=== PATIENT | male | born 1970 | race American Indian/Alaskan Native ===

== ENCOUNTER 2024-04-01 11:52 | Inpatient (IN) | payer MEDICAID, SELFPAY ==
[2024-04-01 12:00] VITALS: BP 118/70; PULSE 84; RESP 19; TEMP 36.3; O2SAT 96
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
[2024-04-01 12:21] LABS: Basophils % (Auto) 0 % (0-2.5); Eosinophils % (Auto) 0 % (0-10); Hematocrit 29.9 % (41.0-53.0); Hemoglobin 9.9 g/dL (13.5-16.0); Immature Granulocytes % (Auto) 1 % (0-0); Immature Granulocytes Auto 0.15 Thou/mm3 (0.00-0.00); Lymphocytes # (Auto) 1.6 Thou/mm3 (1.0-4.8); Lymphocytes % (Auto) 7 % (10-50); Mean Corpuscular HGB Conc 33.1 g/dl (31.0-37.0); Mean Corpuscular Hemoglobin 27.2 pg (25.0-35.0); Mean Corpuscular Volume 82 fL (80-100); Monocytes # (Auto) 1.5 Thou/mm3 (0.0-0.8); Monocytes % (Auto) 7 % (0-12); Neutrophils # (Auto) 19.4 Thou/mm3 (1.8-7.7); Neutrophils % (Auto) 86 % (37-80); Nucleated Red Blood Cell % 0 /100 WBC (0); Platelet Count 477 Thou/mm3 (140-440); RDW Standard Deviation 38.2 fL (35.1-43.9); Red Blood Count 3.64 Miln/mm3 (4.50-5.90); White Blood Count 22.7 Thou/mm3 (3.8-10.6)
[2024-04-01 12:39] LABS: Alanine Aminotransferase 13 U/L (10-49); Albumin, Serum 3.2 gm/dL (3.5-5.0); Alkaline Phosphatase 192 U/L (46-116); Anion Gap 6 (7-16); Aspartate Amino Transferase 21 U/L (0-34); BUN/Creatinine Ratio 15 Ratio (12-20); Bilirubin,Total 0.8 mg/dL (0.3-1.2); Blood Urea Nitrogen 9 mg/dL (9-23); Calcium 9.1 mg/dL (8.3-10.6); Calcium (Corrected) 9.7 mg/dL (8.5-10.1); Carbon Dioxide 32.9 mMol/L (20.0-31.0); Chloride 95 mMol/L (98-107); Creatinine (Component) 0.6 mg/dL (0.6-1.3); Globulin 3.2 gm/dL (2.3-3.5); Glucose 87 mg/dL (74-106); Osmolality,Calculated 265 (275-295); Sodium 134 mMol/L (136-145); Total Protein 6.4 gm/dL (5.7-8.2); eGFR > 60 See Note
[2024-04-01 13:38] VITALS: PULSE 80; RESP 16; O2SAT 98; BMI 27.3
--- NOTE | 2024-04-01 13:54 | PC.NURSE ---
BIBA for seizure. When EMS arrived in scene pt was post ictal, then began to have a tonic colonic seizure. EMS gave 4mg IN versed, seizure stopped. FSBG read LO EMS gave 25g D50. Repeat BG 174 per EMS. VSS otherwise. GCS 15.
--- NOTE | 2024-04-01 14:46 | EKG_ITS ---
[facility] Test Date: 2024-04-01 Pat Name: OMAR PEREZ Department: Room: - Gender: Male Vocal Performer: : 1970 Requested By: Quan Howard Order Number: [id number] Reading MD: Quan Howard Measurements Intervals [place] Rate: 80 P: 45 MS: 139 QRS: -29 QRSD: 113 T: 33 QT: 398 QTc: 461 Interpretive Statements SINUS RHYTHM BORDERLINE LEFT AXIS DEVIATION [QRS AXIS < -20] MODERATE INTRAVENTRICULAR CONDUCTION DELAY [110+ ms QRS DURATION] Compared to ECG 04/26/2022 13:33:23 Intraventricular conduction delay now present Sinus tachycardia no longer present Myocardial infarct finding no longer present /store/S0/[id number]/ecg/[id number].pdf
[2024-04-01 15:34] LABS: INR 1.2 (0.9-1.3); Partial Thromboplastin Time 34.2 Seconds (22.0-36.0); Prothrombin Time 12.6 Seconds (9.0-12.2)
[2024-04-01 15:46] LABS: LDH (Lactate Dehydrogenase) 250 U/L (120-246); Magnesium 1.4 mg/dL (1.6-2.6)
--- NOTE | 2024-04-01 15:46 | ESCONSULT_ITS ---
HPI Data of Consult Primary Care Provider: Easton Hwang PA-C Consult Narrative Reason for consult: Significant drop in H/H FOBT positive History of present illness: 53 years old male evaluated at the request of the physician clinical medical assistant in the emergency room for occult GI bleeding Hemoccult positive stool with and a low hemoglobin hematocrit of 9.9 and 29.9 Patient presented with hypoglycemia and altered mental status requiring infusion of D50 after that he became quite oriented I was consulted for occult GI bleeding and low hemoglobin hematocrit cc:: cc: Review of Systems Review of Systems Systems Reviewed: All systems reviewed, normal except as documented Past Medical History Surgical History OTHER SURGICAL HX: IDDM History of DKA in the past Meds Home Medications and Allergies Home Medications ?Medication ?Instructions ?Recorded ?Confirmed ?Type insulin glargine 100 unit/mL 40 unit subcut QDAY 04/01/24 04/02/24 History subcutaneous solution (Lantus U-100 Insulin) insulin lispro 100 unit/mL 10 unit subcut TID 04/01/24 04/02/24 History subcutaneous pen Allergies Allergy/AdvReac Type Severity Reaction Status Date / Time No Known Allergies Allergy Verified 04/02/24 21:46 Exam Vital Signs Temp Pulse Resp BP Pulse Ox O2 Del Method 97.4 F 84 19 118/70 96 Room Air 04/01/24 12:00 04/01/24 12:00 04/01/24 12:00 04/01/24 12:00 04/01/24 12:00 04/01/24 12:00 Constitutional Comments: Chronically ill-appearing Routine Respiratory Exam Comments: Normal to auscultation Routine Abdominal Exam Comments: Soft nontender Results Labs 04/02/24 04:46 04/02/24 04:46 Labs: Short CBC 04/01/24 Range/Units 12:12 WBC 22.7 H (3.8-10.6) Thou/mm3 Hgb 9.9 L (13.5-16.0) g/dL Hct 29.9 L (41.0-53.0) % Plt Count 477 H D (140-440) Thou/mm3 BMP 04/01/24 12:12 Sodium 134 L Potassium 3.0 L Chloride 95 L Carbon Dioxide 32.9 H BUN 9 Creatinine 0.6 Glucose 87 Calcium 9.1 Liver Function 04/01/24 Range/Units 12:12 Total Bilirubin 0.8 (0.3-1.2) mg/dL AST 21 (0-34) U/L ALT 13 (10-49) U/L Alkaline Phosphatase 192 H (46-116) U/L Albumin 3.2 L (3.5-5.0) gm/dL Assessment and Plan Additional Assessment & Plan Additional Plan: # Occult GI bleeding # Anemia blood loss/acute posthemorrhagic anemia Plan N.p.o. at midnight tonight Fiberoptic esophagogastroduodenoscopy with possible biopsy possible therapeutic intervention under intravenous moderate sedation Continue IV Protonix In case the upper endoscopy is negative we will consider doing the fibrotic colonoscopy prior to discharge Other medical problems include # Hyperglycemia in the noncompliant patient with IDDM with previous history of DKA using insulin indiscriminately thank you very much for the opportunity to participate in the care of this patient
[2024-04-01] MEDS: PANTOPRAZOLE INJ 40 MG VIAL IVP (15:47)
[2024-04-01] MEDS: PANTOPRAZOLE/NS 80MG IV PREMIX 80 MG/100 ML BAG 10 MG IV ×2 (15:47→22:58)
[2024-04-01 15:53] LABS: B-Type Natriuretic Peptide 78 pg/mL (0-100)
[2024-04-01 16:49] VITALS: BP 106/69; PULSE 91; RESP 18; TEMP 36.9; O2SAT 94
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
[2024-04-01 18:28] VITALS: BP 113/73; PULSE 92; RESP 15; TEMP 36.9; O2SAT 95
[2024-04-01] MEDS: POTASSIUM CHLORIDE 20 mEq TABCR 40 MEQ PO (18:57)
[2024-04-01 19:51] VITALS: BMI 27.6
[2024-04-01 20:00] VITALS: BP 110/70; PULSE 88; RESP 16; TEMP 36.6; O2SAT 100
[2024-04-01] MEDS: Magnesium Sulfate 2 GM Ivpb 2 GM/50 ML BAG IV (21:12)
[2024-04-01] MEDS: MELATONIN 3 MG TABLET PO (21:54)
[2024-04-02] VITALS (13 sets, daily range): BP systolic 97–172; BP diastolic 67–99; PULSE 72–108; RESP 13–20; TEMP 36.3–37; O2SAT 94–100
[2024-04-02] MEDS: ACETAMINOPHEN 325 MG TABLET 650 MG PO (02:23)
[2024-04-02] MEDS: GABAPENTIN 100 MG CAPSULE PO (05:01)
[2024-04-02 05:24] LABS: Basophils % (Auto) 0 % (0-2.5); Eosinophils % (Auto) 0 % (0-10); Hematocrit 24.8 % (41.0-53.0); Immature Granulocytes % (Auto) 0 % (0-0); Immature Granulocytes Auto 0.06 Thou/mm3 (0.00-0.00); Lymphocytes # (Auto) 2.3 Thou/mm3 (1.0-4.8); Lymphocytes % (Auto) 17 % (10-50); Mean Corpuscular HGB Conc 33.5 g/dl (31.0-37.0); Mean Corpuscular Volume 81 fL (80-100); Monocytes # (Auto) 1.5 Thou/mm3 (0.0-0.8); Monocytes % (Auto) 11 % (0-12); Neutrophils # (Auto) 9.8 Thou/mm3 (1.8-7.7); Neutrophils % (Auto) 72 % (37-80); Nucleated Red Blood Cell % 0 /100 WBC (0); Platelet Count 403 Thou/mm3 (140-440); RDW Standard Deviation 36.7 fL (35.1-43.9); Red Blood Count 3.07 Miln/mm3 (4.50-5.90); White Blood Count 13.6 Thou/mm3 (3.8-10.6)
[2024-04-02 05:47] LABS: Hemoglobin 8.3 g/dL (13.5-16.0)
[2024-04-02 05:49] LABS: Alanine Aminotransferase 14 U/L (10-49); Albumin, Serum 2.8 gm/dL (3.5-5.0); Alkaline Phosphatase 173 U/L (46-116); Anion Gap 2 (7-16); Aspartate Amino Transferase 14 U/L (0-34); BUN/Creatinine Ratio 13 Ratio (12-20); Bilirubin,Total 0.4 mg/dL (0.3-1.2); Blood Urea Nitrogen 8 mg/dL (9-23); Calcium 8.6 mg/dL (8.3-10.6); Calcium (Corrected) 9.6 mg/dL (8.5-10.1); Carbon Dioxide 33.6 mMol/L (20.0-31.0); Chloride 96 mMol/L (98-107); Creatinine (Component) 0.6 mg/dL (0.6-1.3); Estimated Creatinine Clearance 140.7 mL/min (>60); Globulin 2.8 gm/dL (2.3-3.5); Glucose 255 mg/dL (74-106); Magnesium 1.7 mg/dL (1.6-2.6); Osmolality,Calculated 271 (275-295); Phosphorous 3.5 mg/dL (2.4-5.1); Potassium 3.9 mMol/L (3.4-5.1); Sodium 132 mMol/L (136-145); Total Protein 5.6 gm/dL (5.7-8.2); eGFR > 60 See Note
[2024-04-02] MEDS: INSULIN LISPRO (AdmeLOG) 1 UNIT/0.01 ML UNIT SC ×2 (07:57→11:38)
--- NOTE | 2024-04-02 10:23 | PC.SS ---
Rounding: Pending Dr. Sol consult and reccs
[2024-04-02] MEDS: PANTOPRAZOLE/NS 80MG IV PREMIX 80 MG/100 ML BAG 10 MG IV ×2 (10:37→20:05)
--- NOTE | 2024-04-02 10:53 | PC.SS ---
Javed Lutz is a 53-year-old male admitted to Med-Surg for Hypoglycemia. SS conducted bedside contact with the patient to complete initial assessment and to discuss discharge planning. Patient confirmed demographic information. Patient identifies his spouse Stacie Lutz [phone] as his surrogate decision maker. Patient resides at home with his spouse. Pt states he is able to complete all ADL?s independently, no need for any source of DME. Pts PCP is Dr. Easton Hwang and his pharmacy of choice is [facility] on [address]. DC options discussed and pt wishes to retun home with [facility] as they were following him from recent admission. Pts spouse Stacie will provide transportation upon DC. No further intervention required at this time, social media developer would be available to address any further concerns. DC Plan: Home w/ HH ([facility] Established) Contact: Stacie Lutz [phone] PCP: Jaiden
[2024-04-02 11:57] LABS: Collection Type, Urine Clean Catch
[2024-04-02 12:09] LABS: Bacteria,Urine Rare; Bilirubin,Urine Negative (Negative); Blood,Urine Negative (Negative); Color,Urine Lt-Yellow (Lt Yel-Yel); Glucose, Urine 4+ (Negative); Ketones,Urine Negative (Negative); Leukocyte Esterase,Urine Positive (Negative); Nitrite,Urine Negative (Negative); PH,Urine 7.5 (5.0-7.0); Protein,Urine Negative (Neg - Trace); RBC,Urine 4 /hpf (0-3); Specific Gravity,Urine 1.013 (1.001-1.035); Squamous Epithelial Cell,Urine 1 /hpf (0-5); WBC,Urine 51 /hpf (0-5)
--- NOTE | 2024-04-02 12:10 | ESPR_ITS ---
<Statement entered by Mechelle Mathur DO - 04/02/24 17:37> Senior attestation: Patient was examined and case was reviewed with team including attending physician. Note reviewed, I agree with most of its contents and agree with the patient's care. Glargine 20 units qday added (half of patient's home glargine dose), will order urine toxicology, pending GI recommendations. Mechelle Mathur DO PGY-3 <Statement entered by Miah Montalvo MD - 04/02/24 14:58> Senior Resident Attestation: I supervised/discussed management plan with internal communications specialist physician Dr. Freitas, and was involved in the care of this patient. I personally saw and examined the patient and discussed the assessment and plan with the entire medicine team, including my attending. I agree with the assessment and plan as documented. Patient's morning glucose was 255, his glargine was resumed at 50% of home dose and gabapentin was resumed. He is scheduled for colonoscopy today with Dr. Sol, hemoglobin dropped to 8.3 today. Will continue current management and await for colonoscopy. Patient's care was discussed with attending physician, Dr. Buck. Miah Montalvo MD PGY-2. Documentation for date of: 04/02/24 Subjective Subjective Interval history: 04/02: No overnight events, patient is seen and examined at bedside. Patient states that he has burning type of pain on the soles of his feet bilaterally. Patient also states that he has been sweating a lot. Patient denies chest pain shortness of breath nausea vomiting or abdominal pain. Patient has no other complaints. Exam Vital Signs Temp Pulse Resp BP Pulse Ox O2 Del Method 97.4 F 79 16 115/71 95 Room Air 04/02/24 08:00 04/02/24 08:00 04/02/24 08:00 04/02/24 08:00 04/02/24 08:00 04/02/24 08:00 Narrative Exam GENERAL: A&Ox3 . 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 mucous membranes moist. Eyes open, symmetrical, & clear HEART: Normal Heart Sounds LUNGS: Clear to auscultation with no wheezing or crackles. ABDOMEN: soft, non-distended, non-tender, bowel sounds heard, no guarding or rebound tenderness SKIN: No Rash or ecchymoses EXTREMITIES: 1+ pitting edema, tenderness, able to move all 4 extremities, pedal pulses palpated Objective Labs 04/02/24 04:46 04/02/24 04:46 Labs: Laboratory Results - last 24 hr 04/01/24 04/02/24 12:12 04:46 WBC 22.7 H 13.6 H D RBC 3.64 L 3.07 L Hgb 9.9 L 8.3 L Hct 29.9 L 24.8 L MCV 82 81 MCH 27.2 27.0 MCHC 33.1 33.5 RDW Std Deviation 38.2 36.7 Plt Count 477 H D 403 D Neut % (Auto) 86 H 72 Lymph % (Auto) 7 L 17 [place] % (Auto) 7 11 Eos % (Auto) 0 0 Baso % (Auto) 0 0 Neut # (Auto) 19.4 H 9.8 H Lymph # (Auto) 1.6 2.3 [place] # (Auto) 1.5 H 1.5 H Eos # (Auto) 0.0 0.0 Baso # (Auto) 0.0 0.0 Immature Gran # (Auto) 0.15 H 0.06 H Absolute Nucleated RBC 0.00 0.00 Immature Gran % 1 H 0 Nucleated RBC % 0 0 PT 12.6 H INR 1.2 APTT 34.2 Sodium 134 L 132 L Potassium 3.0 L 3.9 D Chloride 95 L 96 L Carbon Dioxide 32.9 H 33.6 H Anion Gap 6 L 2 L BUN 9 8 L Creatinine 0.6 0.6 Estim Creat Clear Calc Not Performed. 140.7 eGFR > 60 > 60 BUN/Creatinine Ratio 15 13 Glucose 87 255 H D Calculated Osmolality 265 L 271 L Calcium 9.1 8.6 Corrected Calcium 9.7 9.6 Phosphorus 3.5 Magnesium 1.4 L 1.7 Total Bilirubin 0.8 0.4 AST 21 14 ALT 13 14 Alkaline Phosphatase 192 H 173 H Lactate Dehydrogenase 250 H B-Natriuretic Peptide 78 Total Protein 6.4 5.6 L Albumin 3.2 L 2.8 L Globulin 3.2 2.8 Albumin/Globulin Ratio 1.0 L 1.0 L Quality Measures Quality Measures none Assessment & Plan Assessment Current Active Medications: Generic Name Dose Route Start Last Admin Trade Name Freq PRN Reason Stop Dose Admin Acetaminophen 650 mg 04/01/24 16:39 04/02/24 02:23 Acetaminophen 325 Mg Tablet PO 05/01/24 16:38 650 mg Q6H PRN Administration Fever >101.5 Dextrose 25 ml 04/01/24 18:09 Dextrose 50%-Water Inj 50 Ml Syringe IV 05/01/24 18:08 Q15MIN PRN BG 50-70 responsive npo pt Dextrose 50 ml 04/01/24 18:09 Dextrose 50%-Water Inj 50 Ml Syringe IV 05/01/24 18:08 Q15MIN PRN BG <50 OR BG <70 & pt unresponsive Glucagon 1 mg 04/01/24 18:09 Glucagon Inj 1 Mg Vial IM Q15MIN PRN BG <70, and no IV access Pantoprazole Sodium 80 mg in 100 mls @ 10 mls/hr 04/01/24 14:46 04/02/24 10:37 Protonix/Ns 80mg Iv Premix IV 04/04/24 12:45 10 mls/hr Q10H COLBY Administration Insulin Human Lispro 0 unit 04/02/24 07:30 04/02/24 11:38 Insulin Lispro (Admelog) 1 Unit/0.01 Ml Unit SC 05/02/24 07:29 3 unit AC COLBY Administration Protocol Melatonin 3 mg 04/01/24 21:45 04/01/24 21:54 Melatonin 3 Mg Tablet PO 05/02/24 20:59 3 mg HS PRN Administration INSOMNIA Ondansetron HCl 4 mg 04/01/24 16:44 Ondansetron Inj 2 Mg/Ml Inj 2 Ml IV 05/01/24 16:43 Q6H PRN NAUSEA OR VOMITING Protocol Sennosides 2 tab 04/01/24 16:44 Senna Tablet PO 05/01/24 16:43 BID PRN CONSTIPATION Protocol Plan Mr. Lutz is a 53-year-old male with past medical history significant for type 2 diabetes on insulin, hypertension and recent history of hospitalization for DKA presented to the ED after a witnessed seizure by his mother. Patient states that he took insulin and approximately 15 minutes later he felt really sweaty and had a seizure but he cannot recall any other events. Patient endorses that it is possible that he might have used his 40 units of fast acting instead of 10 units which is his normal dose. #hypoglycemia in the setting of #Diabetes Mellitus #Seizure like activity -unlikely #hypokalemia- resolved # Peripheral neuropathy likely from uncontrolled diabetes -When EMS arrived patient's fingerstick glucose was undetectable low, on arrival fingerstick glucose 114 -Patient states that he may have accidentally taken 40 units of fast acting insulin but is unsure -Patient recalls feeling sweaty prior to seizure-like activity -D50 given by EMS en route to the hospital Plan: -40 mEq potassium given on 04/01 -Monitor daily CMP -Insulin sliding scale ordered -20 units of glargine daily started -Monitor daily fingerstick glucose -Patient was started on gabapentin 300mg daily #Substance abuse -Patient's urine tox is positive for fentanyl, benzos, and cocaine -Speeder Worker on 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 pt's baseline is approximately 13 -Significant drop in H/H FOBT positive -Patient denies any history of PUD, NSAID use, denies any episodes of melena or hematochezia Plan: -GI consulted-appreciate recommendations -Protonix drip started -Trend H&H -IV fluids not given, due to patient's pitting edema bilaterally in lower extremities -Pain and nausea management as needed -Avoid NSAIDs/ASA/chemical anticoagulation -Monitor daily CBC # Lower extremity edema -Patient has 1+ pitting edema bilaterally on lower extremities -Denies shortness of breath or chest pain -Will will continue to monitor for improvement with elevation -Will consider echo and fluid restriction if no improvement noted tomorrow #reactive leukocytosis -in the setting of dehydration and hypoglycemia -No source of infection identified Plan: -Monitor daily CBC #Hypomagnesemia-resolved -On arrival magnesium 1.4 Plan: -2mg magnesium given -Monitor am labs # History of primary Hypertension -Patient has a history of high blood pressure previously used to take lisinopril and for some time he stopped taking the medication recently his primary care physician restarted lisinopril -Will hold home blood pressure medications since patient's blood pressure is soft Disposition: Medsurg -pending EGD and colonoscopy with Dr. Sol DVT Prophylaxis: SCD QSHIFT GI Prophylaxis: Pantoprozol-40 IV Diet: clear liquid now, NPO after midnight Code status: Full Assessment and plan discussed with my senior resident Dr. Mathur & attending physician Dr. iCelo Freitas (PGY-1)- Internal medicine resident Attending Provider Attestation/Addendum I reviewed labs, imaging, EKG, home medications and prior available records. Face to face evaluation was performed by me. I have personally examined the patient and discussed assessment and plan with the IM team. I reviewed the resident note and agree with the plan with exceptions as below. 53-year-old male with history of insulin-dependent diabetes mellitus who presented with a chief complaint of generalized body shaking and diaphoresis for 10 to 15 minutes. He was found to have hypoglycemia and possible GI bleed. Hypoglycemia: Resolved. Patient's presenting symptoms are likely due to hypoglycemia rather than paul seizure activities as the patient remembers part of the episode and he is completely alert oriented after correction of his hypoglycemia with dextrose. Currently his fingerstick is stable. Likely in the setting of using high-dose short acting insulin which is likely by mistake. Resume insulin at a lower dose. Continue to monitor fingersticks closely. Instructed the patient to make sure that he identify short acting versus long- acting insulin prior to injection. Acute anemia: Hemoglobin significantly dropped and his FOBT is positive. Concern for GI bleed. Consulted GI: Recommended PPI twice daily IV and plan for EGD/colonoscopy. Monitor H&H. GI bleed: As above. Bilateral lower extremity swelling: Can be due to venous insufficiency versus volume overload. Ordered BMP that was normal. Could be due to venous insufficiency. Elevation of legs. SCDs. Leukocytosis: Likely reactive in the setting of GI bleed and hypoglycemia. Less likely due to infection. Management as above. Trend WBC: Downtrending. Uncontrolled diabetes mellitus with hyperglycemia: On insulin. Resume insulin at a lower dose. Ensure proper use of insulin at the correct doses.
[2024-04-02 12:23] LABS: Amphetamine/Methamp Scrn,U Negative (Negative); Barbiturate Screen,Urine Negative (Negative); Benzodiazepines Screen,Urine Positive (Negative); Benzoylecgonine Screen, Ur Positive (Negative); Fentanyl Screen,Urine Positive (Negative); Opiate Screen,Urine Negative (Negative); THC Screen,Urine Negative (Negative)
[2024-04-02 12:33] LABS: Clarity,Urine Hazy (Clear/Hazy)
[2024-04-02] MEDS: GABAPENTIN 300 MG CAPSULE PO (14:40)
[2024-04-02] MEDS: INSULIN GLARGINE (Lantus) 5 UNIT/0.05 ML (PER 5 UNITS) 20 UNIT SC (15:09)
--- NOTE | 2024-04-02 16:32 | ESPR_ITS ---
Addendum Progress Note Addendum Date of report being addended: 04/03/24 Narrative: I reviewed labs, imaging, EKG, home medications and prior available records. Face to face evaluation was performed by me. I have personally examined the patient and discussed assessment and plan with the IM team. I reviewed the resident note and agree with the plan with exceptions as below. 53-year-old male with history of insulin-dependent diabetes mellitus who presented with a chief complaint of generalized body shaking and diaphoresis for 10 to 15 minutes. He was found to have hypoglycemia and possible GI bleed. Hypoglycemia: Resolved. Patient's presenting symptoms are likely due to hypogl ycemia rather than paul seizure activities as the patient remembers part of the episode and he is completely alert oriented after correction of his hypoglycemia with dextrose. Currently his fingerstick is stable. Likely in the setting of using high-dose short acting insulin which is likely by mistake. Resume insulin at a lower dose. Continue to monitor fingersticks closely. Instructed the pa tient to make sure that he identify short acting versus long-acting insulin prior to injection. Ordered urine toxicology that came back positive for cocaine and fentanyl. Possibly contributing to the patient's initial shaking symptoms. Counseled the patient regarding the importance of avoiding illicit drugs. Acute anemia: Hemoglobin significantly dropped and his FOBT is positive. Concern for GI bleed. Consulted GI: Recommended PPI twice daily IV and plan for EGD/colonoscopy. EGD was done and showed gastritis without source of bleeding. Plan to proceed to colonoscopy. Started clear liquid diet. Monitor H&H. GI bleed: As above. Bilateral lower extremity swelling: Can be due to venous insufficiency versus volume overload. Ordered BMP that was normal. Could be due to venous insufficiency. Elevation of legs. SCDs. Leukocytosis: Likely reactive in the setting of GI bleed and hypoglycemia. Less likely due to infection. Management as above. Trend WBC: Downtrending. Uncontrolled diabetes mellitus with hyperglycemia: On insulin. Resume insulin at a lower dose. Ensure proper use of insulin at the correct doses.
--- NOTE | 2024-04-02 21:50 | SUR.PHASEI ---
[id number] patient arrived to recovery, report from Gloria DEMARCO
--- NOTE | 2024-04-02 22:21 | SUR.PHASEI ---
2216 Report given to Dong DEMARCO, patient meets discharge criteria from recovery, awake and alert, sitting up in [facility], breathing unlabored, vital signs stable, denies pain, and patient ate two jello's and drinking water, denies nausea 2221 Patient transported via [facility]ney to room 357 without incident, patient voided in the restroom, patient resting comfortably in his bed with call light in reach when this appeals writer left patients room
[2024-04-02] MEDS: NA SU/NAHCO3/KC/PEG (Golytely) 4,000 ML BTL 4000 ML PO (23:17)
[2024-04-03] VITALS (19 sets, daily range): BP systolic 98–137; BP diastolic 64–93; PULSE 78–99; RESP 9–20; TEMP 36.4–37.4; O2SAT 94–100
[2024-04-03 05:52] LABS: Basophils % (Auto) 0 % (0-2.5); Eosinophils % (Auto) 0 % (0-10); Hematocrit 27.9 % (41.0-53.0); Hemoglobin 9.2 g/dL (13.5-16.0); Immature Granulocytes % (Auto) 1 % (0-0); Immature Granulocytes Auto 0.06 Thou/mm3 (0.00-0.00); Lymphocytes # (Auto) 1.5 Thou/mm3 (1.0-4.8); Lymphocytes % (Auto) 12 % (10-50); Mean Corpuscular Hemoglobin 26.7 pg (25.0-35.0); Mean Corpuscular Volume 81 fL (80-100); Monocytes # (Auto) 1.1 Thou/mm3 (0.0-0.8); Monocytes % (Auto) 9 % (0-12); Neutrophils # (Auto) 9.8 Thou/mm3 (1.8-7.7); Neutrophils % (Auto) 79 % (37-80); Nucleated Red Blood Cell % 0 /100 WBC (0); Platelet Count 462 Thou/mm3 (140-440); RDW Standard Deviation 37.5 fL (35.1-43.9); Red Blood Count 3.44 Miln/mm3 (4.50-5.90); White Blood Count 12.5 Thou/mm3 (3.8-10.6)
[2024-04-03 06:37] LABS: Alanine Aminotransferase 13 U/L (10-49); Albumin, Serum 3.2 gm/dL (3.5-5.0); Alkaline Phosphatase 175 U/L (46-116); Anion Gap 5 (7-16); Aspartate Amino Transferase 12 U/L (0-34); BUN/Creatinine Ratio 10 Ratio (12-20); Bilirubin,Total 0.6 mg/dL (0.3-1.2); Blood Urea Nitrogen 6 mg/dL (9-23); Calcium (Corrected) 9.6 mg/dL (8.5-10.1); Carbon Dioxide 30.5 mMol/L (20.0-31.0); Chloride 97 mMol/L (98-107); Creatinine (Component) 0.6 mg/dL (0.6-1.3); Estimated Creatinine Clearance 140.7 mL/min (>60); Globulin 3.2 gm/dL (2.3-3.5); Glucose 107 mg/dL (74-106); Osmolality,Calculated 262 (275-295); Potassium 3.8 mMol/L (3.4-5.1); Sodium 132 mMol/L (136-145); Total Protein 6.4 gm/dL (5.7-8.2); eGFR > 60 See Note
[2024-04-03] MEDS: GABAPENTIN 300 MG CAPSULE PO (08:11)
[2024-04-03] MEDS: INSULIN GLARGINE (Lantus) 5 UNIT/0.05 ML (PER 5 UNITS) 20 UNIT SC (08:12)
[2024-04-03] MEDS: INSULIN LISPRO (AdmeLOG) 1 UNIT/0.01 ML UNIT SC ×3 (08:13→17:12)
--- NOTE | 2024-04-03 09:05 | PC.CM ---
Patient is open to [facility] health. If patient goes home doctor will need to place new home health orders.
[2024-04-03] MEDS: PANTOPRAZOLE/NS 80MG IV PREMIX 80 MG/100 ML BAG 10 MG IV ×2 (09:56→22:19)
--- NOTE | 2024-04-03 10:30 | PC.SS ---
Rounding: Pending Colonoscopy
--- NOTE | 2024-04-03 18:11 | ESPR_ITS ---
<Statement entered by Mechelle Mathur DO - 04/03/24 20:22> Senior attestation: Patient was examined and case was reviewed with team including attending physician. Note reviewed, I agree with most of its contents and agree with the patient's care. Currently completing golytely preparation for colonoscopy. Mechelle Mathur DO PGY-3 <Statement entered by Miah Mnotalvo MD - 04/03/24 18:25> Senior Resident Attestation: I supervised/discussed management plan with unpaid intern physician Dr. Freitas, and was involved in the care of this patient. I personally saw and examined the patient and discussed the assessment and plan with the entire medicine team, including my attending. I agree with the assessment and plan as documented. Patient is pending for colonoscopy today, will follow up with GI after. Patient's care was discussed with attending physician, Dr. Buck. Miah Montalvo MD PGY-2. Documentation for date of: 04/03/24 Subjective Subjective Interval history: 04/02: No overnight events, patient is seen and examined at bedside. Patient states that he has burning type of pain on the soles of his feet bilaterally. Patient also states that he has been sweating a lot. Patient denies chest pain shortness of breath nausea vomiting or abdominal pain. Patient has no other complaints. 04/03: No overnight events, patient is seen and examined at bedside. Patient is lying comfortable saturating on room air. Patient denies any shortness of breath, dizziness, chest pain or abdominal pain. Patient is counseled on importance of abstinence from drug use, patient denies any recent drug use. Patient has no complaints. Exam Vital Signs Temp Pulse Resp BP Pulse Ox O2 Del Method O2 Flow Rate 97.7 F 78 16 128/73 99 Room Air 3 04/03/24 16:00 04/03/24 16:00 04/03/24 16:00 04/03/24 16:00 04/03/24 16:00 04/03/24 16:00 04/02/24 21:45 Narrative Exam GENERAL: A&Ox3 . 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 mucous membranes moist. Eyes open, symmetrical, & clear HEART: Normal Heart Sounds LUNGS: Clear to auscultation with no wheezing or crackles. ABDOMEN: soft, non-distended, non-tender, bowel sounds heard, no guarding or rebound tenderness SKIN: No Rash or ecchymoses EXTREMITIES: 1+ pitting edema, tenderness, able to move all 4 extremities, pedal pulses palpated Objective Labs 04/04/24 05:25 04/04/24 05:25 Labs: Laboratory Results - last 24 hr 04/03/24 04:29 WBC 12.5 H RBC 3.44 L Hgb 9.2 L Hct 27.9 L MCV 81 MCH 26.7 MCHC 33.0 RDW Std Deviation 37.5 Plt Count 462 H D Neut % (Auto) 79 Lymph % (Auto) 12 [place] % (Auto) 9 Eos % (Auto) 0 Baso % (Auto) 0 Neut # (Auto) 9.8 H Lymph # (Auto) 1.5 [place] # (Auto) 1.1 H Eos # (Auto) 0.0 Baso # (Auto) 0.0 Immature Gran # (Auto) 0.06 H Absolute Nucleated RBC 0.00 Immature Gran % 1 H Nucleated RBC % 0 Sodium 132 L Potassium 3.8 Chloride 97 L Carbon Dioxide 30.5 Anion Gap 5 L BUN 6 L Creatinine 0.6 Estim Creat Clear Calc 140.7 eGFR > 60 BUN/Creatinine Ratio 10 L Glucose 107 H D Calculated Osmolality 262 L Calcium 9.0 Corrected Calcium 9.6 Total Bilirubin 0.6 AST 12 ALT 13 Alkaline Phosphatase 175 H Total Protein 6.4 Albumin 3.2 L Globulin 3.2 Albumin/Globulin Ratio 1.0 L Quality Measures Quality Measures none Assessment & Plan Assessment Current Active Medications: Generic Name Dose Route Start Last Admin Trade Name Bautista PRN Reason Stop Dose Admin Acetaminophen 650 mg 04/01/24 16:39 04/02/24 02:23 Acetaminophen 325 Mg Tablet PO 05/01/24 16:38 650 mg Q6H PRN Administration Fever >101.5 Dextrose 25 ml 04/01/24 18:09 Dextrose 50%-Water Inj 50 Ml Syringe IV 05/01/24 18:08 Q15MIN PRN BG 50-70 responsive npo pt Dextrose 50 ml 04/01/24 18:09 Dextrose 50%-Water Inj 50 Ml Syringe IV 05/01/24 18:08 Q15MIN PRN BG <50 OR BG <70 & pt unresponsive Gabapentin 300 mg 04/02/24 14:00 04/03/24 08:11 Gabapentin 300 Mg Capsule PO 05/02/24 13:59 300 mg QDAY COLBY Administration Glucagon 1 mg 04/01/24 18:09 Glucagon Inj 1 Mg Vial IM Q15MIN PRN BG <70, and no IV access Pantoprazole Sodium 80 mg in 100 mls @ 10 mls/hr 04/01/24 14:46 04/03/24 09:56 Protonix/Ns 80mg Iv Premix IV 04/04/24 12:45 10 mls/hr Q10H COLBY Administration Insulin Glargine 20 unit 04/03/24 09:00 04/03/24 08:12 Insulin Glargine (Lantus) 5 Unit/0.05 Ml (Per 5 Units) SC 05/03/24 08:59 20 unit QDAY COLBY Administration Insulin Human Lispro 0 unit 04/02/24 07:30 04/03/24 17:12 Insulin Lispro (Admelog) 1 Unit/0.01 Ml Unit SC 05/02/24 07:29 2 unit AC COLBY Administration Protocol Melatonin 3 mg 04/01/24 21:45 04/01/24 21:54 Melatonin 3 Mg Tablet PO 05/02/24 20:59 3 mg HS PRN Administration INSOMNIA Ondansetron HCl 4 mg 04/01/24 16:44 Ondansetron Inj 2 Mg/Ml Inj 2 Ml IV 05/01/24 16:43 Q6H PRN NAUSEA OR VOMITING Protocol Sennosides 2 tab 04/01/24 16:44 Senna Tablet PO 05/01/24 16:43 BID PRN CONSTIPATION Protocol Plan Mr. Lutz is a 53-year-old male with past medical history significant for type 2 diabetes on insulin, hypertension and recent history of hospitalization for DKA presented to the ED after a witnessed seizure by his mother. Patient states that he took insulin and approximately 15 minutes later he felt really sweaty and had a seizure but he cannot recall any other events. Patient endorses that it is possible that he might have used his 40 units of fast acting instead of 10 units which is his normal dose. #hypoglycemia in the setting of #Diabetes Mellitus #Seizure like activity -unlikely #hypokalemia- resolved # Peripheral neuropathy likely from uncontrolled diabetes -When EMS arrived patient's fingerstick glucose was undetectable low, on arrival fingerstick glucose 114 -Patient states that he may have accidentally taken 40 units of fast acting insulin but is unsure -Patient recalls feeling sweaty prior to seizure-like activity -D50 given by EMS en route to the hospital Plan: -40 mEq potassium given on 04/01 -Monitor daily CMP -Insulin sliding scale ordered -20 units of glargine daily started -Monitor daily fingerstick glucose -Patient was started on gabapentin 300mg daily #Substance abuse -Patient's urine tox is positive for fentanyl, benzos, and cocaine -Hearing Health Technician on cessation #Acute blood loss anemia #Upper versus lower -Hemoglobin 9.9 on arrival, hematocrit 29.9. pt's baseline is approximately 13 -Significant drop in H/H FOBT positive -Patient denies any history of PUD, NSAID use, denies any episodes of melena or hematochezia -EGD- Diffuse moderate inflammation in the stomach, no signs of active bleeding Plan: -GI consulted-appreciate recommendations -Colonoscopy- pending -Protonix drip started -Trend H&H -IV fluids not given, due to patient's pitting edema bilaterally in lower extremities -Pain and nausea management as needed -Avoid NSAIDs/ASA/chemical anticoagulation -Monitor daily CBC # Lower extremity edema -Patient has 1+ pitting edema bilaterally on lower extremities -Denies shortness of breath or chest pain -Will will continue to monitor for improvement with elevation -Will consider echo and fluid restriction if no improvement noted tomorrow #reactive leukocytosis -in the setting of dehydration and hypoglycemia -No source of infection identified Plan: -Monitor daily CBC #Hypomagnesemia-resolved -On arrival magnesium 1.4 Plan: -2mg magnesium given -Monitor am labs # History of primary Hypertension -Patient has a history of high blood pressure previously used to take lisinopril and for some time he stopped taking the medication recently his primary care physician restarted lisinopril -Will hold home blood pressure medications since patient's blood pressure is soft Disposition: Medsurg -pending colonoscopy with Dr. Sol DVT Prophylaxis: SCD QSHIFT GI Prophylaxis: Pantoprozol-40 IV Diet: clear liquid now, NPO after midnight Code status: Full Assessment and plan discussed with my senior resident Dr. Mathur & attending physician Dr. Cielo Freitas (PGY-1)- Internal medicine resident Attending Provider Attestation/Addendum I reviewed labs, imaging, EKG, home medications and prior available records. Face to face evaluation was performed by me. I have personally examined the patient and discussed assessment and plan with the IM team. I reviewed the resident note and agree with the plan with exceptions as below. Please see my addendum in the separate note for the date of 04/03.
--- NOTE | 2024-04-03 20:43 | SUR.PHASEI ---
pt received from OR in recovery bay 5. pt asleep but responds to voice, breathing unlabored on room air. v/s stable. report received from Anna DEMARCO.
--- NOTE | 2024-04-03 21:25 | SUR.PHASEI ---
pt awake and alert, breathing unlabored on room air. v/s stable. report called to Shruti DEMARCO. pt will be transferred to room at this time.
[2024-04-04] VITALS: BP 112/69; PULSE 105; RESP 19; TEMP 36.9; O2SAT 95
[2024-04-04 04:00] VITALS: BP 141/86; PULSE 98; RESP 18; TEMP 36.4; O2SAT 93
[2024-04-04 05:55] LABS: Basophils % (Auto) 0 % (0-2.5); Eosinophils % (Auto) 0 % (0-10); Hematocrit 27.2 % (41.0-53.0); Hemoglobin 9.1 g/dL (13.5-16.0); Immature Granulocytes % (Auto) 0 % (0-0); Immature Granulocytes Auto 0.05 Thou/mm3 (0.00-0.00); Lymphocytes # (Auto) 1.8 Thou/mm3 (1.0-4.8); Lymphocytes % (Auto) 15 % (10-50); Mean Corpuscular HGB Conc 33.5 g/dl (31.0-37.0); Mean Corpuscular Hemoglobin 26.9 pg (25.0-35.0); Mean Corpuscular Volume 81 fL (80-100); Monocytes # (Auto) 1.2 Thou/mm3 (0.0-0.8); Monocytes % (Auto) 10 % (0-12); Neutrophils # (Auto) 8.4 Thou/mm3 (1.8-7.7); Neutrophils % (Auto) 74 % (37-80); Nucleated Red Blood Cell % 0 /100 WBC (0); Platelet Count 455 Thou/mm3 (140-440); RDW Standard Deviation 36.9 fL (35.1-43.9); Red Blood Count 3.38 Miln/mm3 (4.50-5.90); White Blood Count 11.4 Thou/mm3 (3.8-10.6)
[2024-04-04 06:24] LABS: Alanine Aminotransferase 20 U/L (10-49); Alkaline Phosphatase 245 U/L (46-116); Anion Gap 4 (7-16); Aspartate Amino Transferase 22 U/L (0-34); BUN/Creatinine Ratio 9 Ratio (12-20); Bilirubin,Total 0.5 mg/dL (0.3-1.2); Blood Urea Nitrogen 6 mg/dL (9-23); Calcium 8.5 mg/dL (8.3-10.6); Calcium (Corrected) 9.3 mg/dL (8.5-10.1); Carbon Dioxide 30.7 mMol/L (20.0-31.0); Chloride 96 mMol/L (98-107); Creatinine (Component) 0.7 mg/dL (0.6-1.3); Estimated Creatinine Clearance 120.6 mL/min (>60); Glucose 300 mg/dL (74-106); Osmolality,Calculated 271 (275-295); Potassium 3.5 mMol/L (3.4-5.1); Sodium 131 mMol/L (136-145); eGFR > 60 See Note
[2024-04-04] MEDS: INSULIN LISPRO (AdmeLOG) 1 UNIT/0.01 ML UNIT SC (07:45)
[2024-04-04 08:00] VITALS: BP 117/74; PULSE 80; RESP 18; TEMP 36.2; O2SAT 96
[2024-04-04] MEDS: INSULIN LISPRO (AdmeLOG) 1 UNIT/0.01 ML UNIT 5 UNIT SC (08:56)
[2024-04-04] MEDS: INSULIN GLARGINE (Lantus) 5 UNIT/0.05 ML (PER 5 UNITS) 20 UNIT SC (08:56)
[2024-04-04] MEDS: GABAPENTIN 300 MG CAPSULE PO (08:57)
[2024-04-04 11:33] VITALS: BP 139/83; PULSE 87; RESP 18; TEMP 36.2; O2SAT 96
--- NOTE | 2024-04-04 12:13 | PC.SS ---
SS follow up note; Patient has no preference in HH agency
--- NOTE | 2024-04-04 18:26 | ESDS_ITS ---
<Statement entered by Aiden Crawford MD - 04/10/24 17:31> Attending attestation: I reviewed above note and agree with findings and plans. I have also personally examined the patient with medicine team and went over assessment and plan with medical team including international trade teacher and resident physician. Planned Discharge Date 04/04/24 DS: Providers Provider Date of admission: 04/01/24 16:39 Primary care physician: Easton Hwang PA-C Admitting Provider: Crystal Freitas MD Attending Provider on Admission: Maulik Buck MD Consults: 04/01/24 14:50 Consult to Gastroenterology Stat Comment: Consulting Provider: Doe Sol Attending Provider on DC: Miah Montalvo MD Discharging Provider: Miah Montalvo MD DS: Diagnosis Problem List Completed Was Problem List Reviewed/Reconciled?: Yes Hospital Course Hospital Course Hospital course: Mr. Lutz is a 53-year-old male with past medical history significant for type 2 diabetes on insulin, hypertension and recent history of hospitalization for DKA presented to the ED after a witnessed seizure by his mother. Patient states that he took insulin and approximately 15 minutes later he felt really sweaty and had a seizure but he cannot recall any other events. Patient endorses that it is possible that he might have used his 40 units of fast acting instead of 10 units which is his normal dose. Patient denied using any illicit drugs, however UTOX showed positive fentanyl, cocaine and benzodiazepines. Patient was admitted for further management. Patient's FOBT was positive and gastroenterology was consulted, patient underwent colonoscopy showing several polyps and hemorrhoids, no signs of bleeding. Patient was educated about proper insulin use and was counseled on drug use. He is stable for discharge today. Continue insulin glargine 40 units daily. Continue insulin lispro 5 units 3 times daily. Use your CGM FreeStyle Caitlin and monitor glucose level daily. Follow up with PCP within 1-2 weeks. #Hypoglycemia, resolved. #Diabetes Mellitus #Seizure like activity, unlikely. #Hypokalemia- resolved. #Peripheral neuropathy likely from uncontrolled diabetes #Substance abuse. #Acute blood loss anemia. #Lower extremity edema. #Reactive leukocytosis. #Hypomagnesemia, resolved. # History of primary Hypertension Plan of care discussed with attending Dr. Crawford. Miah Montalvo MD, PGY 2. Disclaimer: This note was dictated by speech recognition. Minor errors in strategic sourcing specialist may be present due to voice recognition software. Time Spent with Patient Time attestation: Total time spent providing and/or coordinating discharge services: Home Health Home Health Referral Orders: 04/04/24 09:42 Home Health Referral Routine Reason For Exam: PT Home-Bound The patient must either because of illness or injury, need the aid of supportive devices such as crutches, canes, wheelchairs, and walkers; the use of special transportation; or the assistance of another person in order to leave their place of residence; OR have a condition such that leaving his or her home is medically contraindicated. In addition, the patient also meets the following criteria: patient is normally unable to leave the home and leaving home requires considerable taxing effort. Addendum to Home Health Certification Practitioner's Certification: I certify that the patient has been under my care in the hospital and the care of attending physician (see below). We had a [id number]-[id number] encounter on (see date below). My clinical findings indicate that the patient is home bound per the above criteria and the Home Health Services noted in these orders are medically necessary. The primary reason for the [id number] encounter is related to the fact that the patient requires home health services. Date Certifying Ntav-fp-Idrb Physician Encounter: 04/01/24 Physician's Name who will Assume Oversight for Services: Easton Hwang Physician's Phone No.who will Assume Oversight for Service: MEAT CARRIER - Community Resources: No PT to Evaluate: Yes PT to evaluate and provide a treatmnet plan to increase patient's mobility and strength. Wound Care: No IV Therapy: No RN Safety Evaluation: Yes RN to evaluate and create a plan of care that will produce positive outcomes. Palliative Treatment: No Palliative treatment and evaluate the need for hospice. Home Health Aide - Personal Care: No Home Health Aide to assist with any ADL's. Exam Vital Signs Temp Pulse Resp BP Pulse Ox O2 Del Method O2 Flow Rate 97.2 F 87 18 139/83 H 96 Room Air 3 04/04/24 11:33 04/04/24 11:33 04/04/24 11:33 04/04/24 11:33 04/04/24 11:33 04/04/24 11:33 04/04/24 11:33 Narrative Exam Gen: Well-developed and well-nourished. HEENT: NCAT, PERRLA, EOMI, MMM, anicteric conjunctivae. CVS: normal S1 and S2. RRR. No M/R/G. Resp: CTA B/L. No rhonchi, rales, crackles or wheezing. Abd: soft, non-tender, non-distended. BS+ in all 4 quadrants. MSK: Good ROM in BUE & BLE. No edema or rash. Neuro: CN II-XII grossly intact. Strength 5/5 in BUE & BLE. Alert and oriented x3. Psych: appropriate mood and affect. Discharge Plan Plan Patient Disposition: Home w/HOME HEALTH Patient condition on transfer: Stable Care Plan Goals: Continue insulin glargine 40 units daily. Continue insulin lispro 5 units 3 times daily. Use your CGM FreeStyle Caitlin and monitor glucose level daily. Follow up with PCP within 1-2 weeks. Prescriptions/Referrals Prescriptions/Med Rec: Continued insulin glargine [Lantus U-100 Insulin] 100 unit/mL solution 40 unit SUBCUT QDAY Patient Comments: INJECT 40 UNITS BY SUBCUTANEOUS ROUTE ONCE PER INSULIN PROTOCOL (DME) FreeStyle Caitlin 3 Sensor Device See Rx Instructions .Route Qty: 1 4RF Rx Instructions: As directed (DME) FreeStyle Caitlin 3 Jayess Misc See Rx Instructions .Route Qty: 1 0RF Rx Instructions: As directed Changed insulin lispro 100 unit/mL insulin pen 5 unit SUBCUT TID Qty: 15 0RF Patient Comments: INJECT 5 UNITS SUBCUTANEOUS 3 TIMES A DAY WITH MEALS No Action (DME) FreeStyle Caitlin 2 Jayess Misc See Rx Instructions .Route Qty: 1 0RF Rx Instructions: As directed (DME) FreeStyle Caitlin 2 Sensor Kit See Rx Instructions .Route Qty: 2 1RF Rx Instructions: As directed Referrals: Easton Hwang PA-C [Primary Care Provider] - Patient/Caregiver Discharge Instructions Education Materials: Hypoglycemia (Low Blood Sugar), Colonoscopy, Upper GI Endoscopy Print Language: Palestinian Stand Alone Forms: Sudha Award Info., Patient Portal Info Letter Discharge Order Discharge Orders: Discharge (Routine); Ordered 04/04/24 Ordered By: Miah Montalvo Quality Discharge Quality Measures VTE prophylaxis
--- NOTE | 2024-04-05 12:03 | PC.CM ---
Addendum entered by Jose Myers RN 04/05/24 15:10: [facility] accepted the pt. Booked [facility]. Pending start of care date. Original Note: HH referral sent on [facility]. Awaiting responses. Pending Start of care date.
--- NOTE | 2024-04-07 10:56 | PC.CM ---
Patient accepted by [facility]. Start of care date is set for 04/08.
== END 2024-04-04 11:36 | disposition home health service (06) | DRG 952 ==
LOC: SERX 15:39 → SERHOLD 18:02 → S3NX 19:49
PROVIDERS: Registered Nurse General Practice; Specialist; Emergency Provider Emergency Medicine; PCP Physician Assistant; Visit Provider Student in an Organized Health Care Education/Training Program
PROC: 0DJ08ZZ Inspection of Upper Intestinal Tract, Via Natural or Artificial Opening Endoscopic (ICD-10-PCS; CPT 43239; principal; 2024-04-02 18:00)
PROC: 0DJD8ZZ Inspection of Lower Intestinal Tract, Via Natural or Artificial Opening Endoscopic (ICD-10-PCS; CPT 45378; principal; 2024-04-03 16:00)
DX: E11.649 Type 2 diabetes mellitus with hypoglycemia without coma (principal); K29.70 Gastritis, unspecified, without bleeding; D12.3 Benign neoplasm of transverse colon; D12.5 Benign neoplasm of sigmoid colon; I10 Essential (primary) hypertension; E87.6 Hypokalemia; D72.829 Elevated white blood cell count, unspecified; E86.0 Dehydration; D62 Acute posthemorrhagic anemia; E83.42 Hypomagnesemia; R60.0 Localized edema; E11.65 Type 2 diabetes mellitus with hyperglycemia; K64.8 Other hemorrhoids; K57.30 Diverticulosis of large intestine without perforation or abscess without bleeding; R56.9 Unspecified convulsions; R19.5 Other fecal abnormalities; F13.10 Sedative, hypnotic or anxiolytic abuse, uncomplicated; F14.10 Cocaine abuse, uncomplicated; F11.10 Opioid abuse, uncomplicated; E11.42 Type 2 diabetes mellitus with diabetic polyneuropathy; Z79.4 Long term (current) use of insulin; Z79.899 Other long term (current) drug therapy
CPT/HCPCS: 36415; 80053; 80307; 81001; 83615; 83735; 83880; 84100; 85025; 85610; 85730; 87081; 93005; 96374; 99285; A4649; J1200; J1815; J2175; J2250; J2470; J3010; J3475; J3490; A9270

== ENCOUNTER 2024-04-11 09:18 | Inpatient (IN) | payer MEDICAID, SELFPAY ==
[2024-04-11] VITALS (22 sets, daily range): BP systolic 90–119; BP diastolic 60–78; PULSE 77–150; RESP 14–97; TEMP 36.5–37.7; O2SAT 92–98; BMI 28.0; BMI 27.9
--- NOTE | 2024-04-11 09:30 | EKG_ITS ---
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: : 1970 Requested By: Germán Montes Order Number: [id number] Reading MD: Germán Montes Measurements Intervals [place] Rate: 148 P: IN: QRS: -85 QRSD: 102 T: 8 QT: 292 QTc: 459 Interpretive Statements ATRIAL FLUTTER/TACHYCARDIA WITH RAPID VENTRICULAR RESPONSE PATTERN CONSISTENT WITH PULMONARY DISEASE LEFT ANTERIOR FASCICULAR BLOCK [QRS AXIS <= -45, QR IN I, RS IN II] INFERIOR MYOCARDIAL INFARCTION , PROBABLY OLD [40+ ms Q WAVE AND/OR ST/T ABNORMALITY IN II/aVF] MODERATE T-WAVE ABNORMALITY, CONSIDER ANTERIOR ISCHEMIA [-0.1+ mV T WAVE IN V3/V4] Compared to ECG 04/01/2024 15:44:25 Left anterior fascicular block now present Myocardial infarct finding now present T-wave abnormality now present Possible ischemia now present Sinus rhythm no longer present Intraventricular conduction delay no longer present /store/S0/[id number]/ecg/[id number].pdf
--- NOTE | 2024-04-11 09:30 | XR_ITS ---
Examination: AP chest single view Technique one AP portable upright chest single view Exam date and time: April 11, 2024 1029 hours INDICATIONS: Chest pain fever beginning 3 days ago, sepsis FINDINGS: Significant bilateral pneumonia Prominent hilar regions Minor prominence left ventricle Mild osteopenia IMPRESSION: Significant bilateral pneumonia
--- NOTE | 2024-04-11 09:55 | PC.NURSE ---
Received report from [facility] playroom attendant; per report, pt picked up from clinic with initial c/o L ankle pain but was needed to be taken to ER due to elevated HR in 140's. Pt has hx of DM and recently diagnosed with bladder infection; pt has not been taking any antibiotics. Pt attached to the monitor at this time.
--- NOTE | 2024-04-11 09:55 | PD.EDADULT ---
ED General RME/HPI General Chief complaint: Weakness Stated complaint: SEPSIS/WEAKNESS Time Seen by Provider: 04/11/24 09:26 Arrival date/time: 04/11/24 09:18 Limitations: no limitations RME / HPI RME / HPI narrative: 53 year old male with history of hypertension, diabetes on insulin, and previous admission for DKA presents to the ED BIBA for evaluation of generalized weakness. Patient reports he was recently diagnosed with a UTI and admitted to being noncompliant with his antibiotics. States today he followed up with his PCP Dr. Dobson and while in the office had a low grade fever and was tachycardic. Patient sent here for concerns of sepsis secondary to UTI. Patient denies chest pain, cough, sore throat, shortness of breath, abdominal pain, vomiting. Related Data Home Medications ?Medication ?Instructions ?Recorded ?Confirmed insulin glargine 100 unit/mL 40 unit subcut BID 04/01/24 04/11/24 subcutaneous solution (Lantus U-100 Insulin) empagliflozin 10 mg tablet 10 mg PO QAM 04/11/24 04/11/24 (Jardiance) nut.tx.gluc.intol,lac-free,soy See Rx Instructions .Route .COMPLEX 04/11/24 04/11/24 (Glucerna Therapeutic Nutrition oral liquid) sitagliptin phosphate 100 mg 1 mg PO QDAY 04/11/24 04/11/24 tablet (Januvia) Previous Rx's ?Medication ?Instructions ?Recorded blood-glucose meter,continuous #1 ea 03/21/24 (FreeStyle Caitlin 3 [place]) blood-glucose sensor (FreeStyle #1 ea 03/21/24 Caitlin 3 Sensor device) flash glucose scanning reader #1 ea 03/25/24 (FreeStyle Caitlin 2 [place]) flash glucose sensor (FreeStyle #2 ea 03/25/24 Caitlin 2 Sensor kit) Allergies Allergy/AdvReac Type Severity Reaction Status Date / Time No Known Allergies Allergy Verified 04/03/24 20:09 Review of Systems Review of Systems Systems Reviewed: All systems reviewed, normal except as documented Past Medical History Past Medical History NEUROLOGIC: Positive Seizures (Sugar dropped and had mild seizure, per pt no hx of seizures before) CARDIAC: Positive Hypertension; Negative Congestive Heart Failure RESPIRATORY: Negative Chronic Obstructive Pulmonary Disease (COPD) GENITOURINARY: Negative Renal Disease ENDOCRINE: Positive Diabetes Mellitus Type 1; Negative Diabetes Mellitus Type 2 OTHER HISTORY: Negative Blood Transfusions or Anesthesia Reactions Surgical History SURGICAL: Positive Abdominal Surgery and Bowel Surgery Social History SMOKING STATUS: Never smoker ED Exam General Limitations: Present no limitations General appearance: Present alert and other (shaky and shivering ) Head Head exam: Present atraumatic, normocephalic and normal inspection Eye Eye exam: Present normal appearance, PERRL and EOMI ENT ENT exam: Present normal exam, normal oropharynx and mucous membranes moist Neck Neck exam: Present normal inspection, full ROM and trachea midline Chest Chest inspection: Present normal inspection and symmetric chest wall rise Respiratory Respiratory exam: Present normal lung sounds bilaterally Cardiovascular Cardiovascular exam: Present tachycardia and normal heart sounds Abdominal Exam Abdominal exam: Present soft and normal bowel sounds Extremities Exam Extremities exam: Present normal inspection and full ROM Back Exam Back exam: Present normal inspection and full ROM Neurological Exam Neurological exam: Present alert, oriented X3 and CN II-XII intact Psychiatric Psychiatric exam: Present normal affect and normal mood Skin Skin exam: Present warm, dry, intact and normal color Course Course Course Narrative: chest xray ordered to rule out pneumonia. Quality Measures Current suspected stage: septic shock (LA >4 and/or hypotension) IVF 30 ml/kg given for lactic acid >4 and/or hypotension: yes Sepsis reassessment completed at (date): 04/11/24 Sepsis reassessment completed at (time): 12:15 Possible source: genitourinary Blood cultures ordered: completed in ED Antibiotic ordered: Yes Pertinent labs: 04/11/24 10:04 Lactic Acid 10.1 H* mMol/L (0.4-2.0) Procalcitonin 17.47 H ng/ml (0.0-0.49) sepsis Orders Category Date Time Status COVID-19 Screening Questionnaire NOW Care 04/11/24 11:53 Completed Conflicts Analyst STAT Care 04/11/24 09:30 Active Continuous Pulse Oximetry STAT Care 04/11/24 09:30 Completed DKA Protocol QSHIFT Care 04/11/24 11:59 Active Decision to Admit X1 Care 04/11/24 11:53 Active EKG (ED ONLY) *Do not use* NOW Care 04/11/24 09:30 Completed In and Out Catheter X1PRN Care 04/11/24 09:30 Active Insert IV NOW Care 04/11/24 09:30 Active Intake and Output Routine Care 04/11/24 11:59 Ordered NPO STAT Care 04/11/24 09:30 Active Notify provider NEEDED Care 04/11/24 11:59 Active Strict Intake and Output Routine Care 04/11/24 09:30 Ordered Referral Registered Dietitian Routine Cons 04/11/24 11:59 Active EKG (ED Only) Stat Exams 04/11/24 09:30 Draft XR ankle comp LT min 3V Stat Exams 04/11/24 11:22 Completed XR chest 1V portable Stat Exams 04/11/24 09:30 Completed Arterial Blood Gas Stat Lab 04/11/24 11:59 Ordered B-Type Natriuretic Peptide Stat Lab 04/11/24 10:04 Completed Beta Hydroxybutyrate Stat Lab 04/11/24 11:59 Ordered Beta Hydroxybutyrate Stat Lab 04/11/24 12:14 Ordered Blood Culture (Lab) Stat Lab 04/11/24 10:04 Received Blood Culture (Lab) Stat Lab 04/11/24 11:59 Ordered CBC Stat Lab 04/11/24 10:04 Completed CBC Stat Lab 04/11/24 11:59 Ordered Comprehensive Metabolic Panel Stat Lab 04/11/24 10:04 Results Glycohemoglobin w (eAG) Stat Lab 04/11/24 11:59 Ordered LDH (Lactate Dehydrogenase) Stat Lab 04/11/24 10:04 Results Lactate (Lactic Acid) Stat Lab 04/11/24 10:04 Results Lipase Stat Lab 04/11/24 10:04 Results Magnesium Stat Lab 04/11/24 10:04 Results Magnesium Stat Lab 04/11/24 11:59 Ordered Partial Thromboplastin Time Stat Lab 04/11/24 10:04 Completed Phosphorous Stat Lab 04/11/24 10:04 Results Phosphorous Stat Lab 04/11/24 11:59 Ordered Procalcitonin Stat Lab 04/11/24 10:04 Results Prothrombin Time with INR Stat Lab 04/11/24 10:04 Completed Troponin I Stat Lab 04/11/24 10:04 Results Urinalysis Stat Lab 04/11/24 11:39 Completed Urinalysis Stat Lab 04/11/24 11:59 Ordered Urine Culture Stat Lab 04/11/24 11:39 Received Urine Culture Stat Lab 04/11/24 11:59 Ordered Dextrose 5%-Lactated Ringers [D5-Lr] 1,000 ml Med 04/11/24 11:59 Active Pot Chl Additive [KCl Additive] 40 meq IV 250 mls/hr Dextrose 5%-Lactated Ringers [D5-Lr] 1,000 ml Med 04/11/24 11:59 Active IV 250 mls/hr KCL 20 mEq/L in D5-LR Med 04/11/24 11:59 Active 20 meq in 1,000 ml IV 250 mls/hr Magnesium Sulfate 2 GM Ivpb [Magnesium Sulfate Ivpb] Med 04/11/24 11:59 Active 2 gm in 50 ml IV 25 mls/hr POT PHOS 15 mMol in NS 250 ML [Pot Phos 15 mMol in NS Med 04/11/24 11:59 Active 250 ml] 15 mmol in 250 ml IV PRN POTASSIUM CHL 10 mEq IVPB [Kcl Ivpb] Med 04/11/24 11:59 Active 10 meq in 100 ml IV 100 mls/hr POTASSIUM CHL 10 mEq IVPB [Kcl Ivpb] Med 04/11/24 11:59 Active 10 meq in 100 ml IV PRN Pre-Mixed [Pre-mixed Bag] 1 bag Med 04/11/24 11:59 Active Insulin Reg 100 Units/100 ml [Myxredlin] 100 unit IV 0.1 unit/kg/hr Ringers Lactated 1000 ml [Lactated Ringers] 1,000 ml Med 04/11/24 11:59 Active Pot Chl Additive [KCl Additive] 20 meq IV 250 mls/hr Ringers Lactated 1000 ml [Lactated Ringers] 1,000 ml Med 04/11/24 11:59 Active Pot Chl Additive [KCl Additive] 40 meq IV 250 mls/hr Ringers Lactated 1000 ml [Lactated Ringers] 1,000 ml Med 04/11/24 11:59 Active IV 250 mls/hr Sodium Bicarb 8.4% SYR Med 04/11/24 11:59 Active 50 ml IV PRN PRN Sodium Chloride 0.9% 1000 ml [Ns] 2,000 ml Med 04/11/24 10:12 Discontinued IV 1,000 mls/hr Sodium Chloride 0.9% 250 ml [Ns] 250 ml Med 04/11/24 11:59 Active Sod Phos Additive [NaPhos Additive] 15 mmol IV 62.5 mls/hr cefTRIAXone [Rocephin] 1,000 mg Med 04/11/24 09:30 Discontinued Sodium Chloride 0.9% (P) [Ns 0.9% (P)] 50 ml IV X1 Oxygen Delivery NOW RT 04/11/24 09:30 Active Vital Signs Vital signs: Vital Signs Temperature 98.5 F 04/11/24 09:30 Pulse Rate 134 H 04/11/24 09:30 Respiratory Rate 17 04/11/24 09:30 Blood Pressure 114/74 04/11/24 09:30 Pulse Oximetry (%) 96 04/11/24 09:30 Oxygen Delivery Method Room Air 04/11/24 09:30 Pulse ox is 96% on room air which is adequate. [facility] Patient data External records reviewed:: [facility] previous records (I reviewed admission from 04/01/2024 through 04/05/2024) and EMS form Clinical information provided by:: patient and EMS Social determinants that could affect healthcare access:: none Patient has the following chronic illnesses:: hypertension, diabetes on insulin, and previous admission for DKA recently diagnosed with UTI and noncompliant with antibiotics How is presenting disease/condition affected by chronic disease/condition?: exacerbated by Evaluation data The following diagnostics were reviewed and interpreted by me:: lab results, radiology exam(s) and EKG tracing(s) (Sinus tachycardia, rate 148, nonspecific ST and T-wave changes ) Lab and/or radiology exams considered but not ordered:: None Interpretation Summary: Ordering Physician: Germán Montes MD Date of Service: 04/11/24 Procedure(s): XR chest 1V portable Accession Number(s): [id number] cc: Germán Montes MD; Javed Wu MD; EASTON GARCIA~ Examination: AP chest single view Technique one AP portable upright chest single view Exam date and time: April 11, 2024 1029 hours INDICATIONS: Chest pain fever beginning 3 days ago, sepsis FINDINGS: Significant bilateral pneumonia Prominent hilar regions Minor prominence left ventricle Mild osteopenia IMPRESSION: Significant bilateral pneumonia Dictated By: Javed Wu MD Signed By: <Electronically signed by Javed Wu MD in OV> 04/11/24 1056 Medications Medications considered but not ordered:: None Medication administrations:: Medication Administration History Potassium Chloride (Kcl Ivpb) 10 meq in 100 mls @ 100 mls/hr IV .Q1H PRN PRN Reason: IF POTASSIUM LESS THAN 3.3 Stop: 05/11/24 11:58 Magnesium Sulfate (Magnesium Sulfate Ivpb) 2 gm in 50 mls @ 25 mls/hr IV .Q2H PRN PRN Reason: PER DKA PROTOCOL Stop: 05/11/24 11:58 Insulin Human Regular 100 unit (/ IV Miscellaneous Supplies) 100 mls @ 8.618 mls/hr IV .[id number] PRN; Protocol PRN Reason: PER PROTOCOL Stop: 05/11/24 11:58 Dextrose/Lactated Ringer's (D5-Lr) 1,000 mls @ 250 mls/hr IV .Q4H PRN PRN Reason: PER PROTOCOL Stop: 05/11/24 11:58 Lactated Ringer's (Lactated Ringers) 1,000 mls @ 250 mls/hr IV .Q4H PRN PRN Reason: PER PROTOCOL Stop: 04/12/24 11:58 Potassium Chloride 20 meq/ (Lactated Ringer's) 1,010 mls @ 250 mls/hr IV .Q4H3M PRN PRN Reason: K LEVEL 3.3 TO 5.3mM/L Stop: 05/11/24 11:58 Potassium Chloride 40 meq/ (Lactated Ringer's) 1,020 mls @ 250 mls/hr IV .Q4H5M PRN PRN Reason: K LEVEL < 3.3 mM/L Stop: 05/11/24 11:58 Potassium Chloride 40 meq/ (Dextrose/Lactated Ringer's) 1,020 mls @ 250 mls/hr IV .Q4H5M PRN PRN Reason: K LEVEL < 3.3mM/L Stop: 05/11/24 11:58 Potassium Cl/Dextrose/Lact Ringer's (Kcl 20 Meq/L In D5-Lr) 20 meq in 1,000 mls @ 250 mls/hr IV .Q4H PRN PRN Reason: K LEVEL 3.3 TO 5.3 mM/L Stop: 05/11/24 11:58 Potassium Chloride (Kcl Ivpb) 10 meq in 100 mls @ 50 mls/hr IV PRN PRN PRN Reason: K LEVEL 3.3 to 5.3 & BG > 200 Stop: 05/11/24 11:58 Potassium Phosphate (Pot Phos 15 Mmol In Ns 250 Ml) 15 mmol in 250 mls @ 62.5 mls/hr IV PRN PRN PRN Reason: Phosphate <= 1mg/dL Stop: 05/11/24 11:58 Sodium Phosphate 15 mmol/ (Sodium Chloride) 255 mls @ 62.5 mls/hr IV .Q4H5M PRN PRN Reason: Phosphate <= 1mg/dL and K> than 5.3 Stop: 05/11/24 11:58 Sodium Bicarbonate (Sodium Bicarb Inj 8.4% Syr 50 Ml Syringe) 50 ml IV PRN PRN PRN Reason: For ph <= to 7.0 Stop: 05/11/24 11:58 Discontinued Medications Ceftriaxone Sodium 1,000 mg/ (Sodium Chloride) 50 mls @ 100 mls/hr IV X1 ONE Stop: 04/11/24 09:59 Last Infusion: 04/11/24 10:50 Dose: Infused Documented By: Admin: 04/11/24 10:16 Dose: 100 mls/hr Documented By: KDC Sodium Chloride (Ns) 2,000 mls @ 1,000 mls/hr IV .Q2H ONE Stop: 04/11/24 12:11 Last Admin: 04/11/24 10:17 Dose: 1,000 mls/hr Documented By: KDC See above Consultations Consultation(s) initiated? (list below): Yes Consultation #1 (Physician, Specialty, Details): I spoke with patients PCP Dr. Dobson. Time: 09:25 Consultation #2 (Physician, Specialty, Details): I spoke with resident Dr. Mina working with Dr. Case. States because of the DKA, patient would require admission to ICU. Time: 11:55 Consultation #3 (Physician, Specialty, Details): I spoke with insurance claims specialist Dr. Alonzo. Discussed patients PMHx, HPI, ED course, exam findings, labs, and radiology results. He accepts the patient for admission. Time: 12:00 Diagnosis Differential Diagnosis ED Complaint MDM: Sepsis, UTI, pneumonia, viral illness Most likely diagnosis given after review of the tests above:: Sepsis Pneumonia Admission Indicated Admission indicated?: indicated Explain why admission is indicated or not indicated:: Further treatment and management of sepsis and DKA Admission Request Was there a request for admission?: Yes Admission Attestation Admission request attestation: Discussed case with [] from Hospitalist service regarding admission. Discussed patients ED course, exam findings, labs, and radiology results. The Hospitalist [agrees,declines] to accept the patient for admission. Disposition Plan Disposition Plan: Admit Medical Decision Making Differential Diagnosis Differential Diagnosis: Sepsis, UTI, pneumonia, viral illness Lab Data 04/11/24 10:04 04/11/24 10:04 Labs: Lab Results 04/11/24 04/11/24 Range/Units 10:04 11:39 WBC 34.5 H (3.8-10.6) Thou/mm3 RBC 4.14 L (4.50-5.90) Miln/mm3 Hgb 10.9 L (13.5-16.0) g/dL Hct 32.9 L (41.0-53.0) % MCV 80 (80-100) fL MCH 26.3 (25.0-35.0) pg MCHC 33.1 (31.0-37.0) g/dl RDW Std Deviation 38.4 (35.1-43.9) fL Plt Count 283 D (140-440) Thou/mm3 Neut % (Auto) 91 H (37-80) % Lymph % (Auto) 2 L (10-50) % [place] % (Auto) 2 (0-12) % Eos % (Auto) 0 (0-10) % Baso % (Auto) 0 (0-2.5) % Neut # (Auto) 31.4 H (1.8-7.7) Thou/mm3 Lymph # (Auto) 0.8 L (1.0-4.8) Thou/mm3 [place] # (Auto) 0.7 (0.0-0.8) Thou/mm3 Eos # (Auto) 0.0 (0.0-0.5) Thou/mm3 Baso # (Auto) 0.1 (0.0-0.2) Thou/mm3 Immature Gran # (Auto) 1.44 H (0.00-0.00) Thou/mm3 Absolute Nucleated RBC 0.10 H (0.00-0.00) Thou/mm3 Immature Gran % 4 H (0-0) % Nucleated RBC % 0 (0) /100 WBC PT 13.8 H (9.0-12.2) Seconds INR 1.3 (0.9-1.3) APTT 33.5 (22.0-36.0) Seconds Sodium 127 L (136-145) mMol/L Potassium 4.0 (3.4-5.1) mMol/L Chloride 88 L (98-107) mMol/L Carbon Dioxide 21.9 (20.0-31.0) mMol/L Anion Gap 17 H (7-16) BUN 17 (9-23) mg/dL Creatinine 1.0 (0.6-1.3) mg/dL Estim Creat Clear Calc 91.8 (>60) mL/min eGFR > 60 (60 - ) See Note BUN/Creatinine Ratio 17 (12-20) Ratio Glucose 383 H (74-106) mg/dL Calculated Osmolality 272 L (275-295) Lactic Acid 10.1 H* (0.4-2.0) mMol/L Calcium 9.4 (8.3-10.6) mg/dL Corrected Calcium 10.0 (8.5-10.1) mg/dL Phosphorus 4.5 (2.4-5.1) mg/dL Magnesium 1.6 (1.6-2.6) mg/dL AST 22 (0-34) U/L ALT 16 (10-49) U/L Alkaline Phosphatase 645 H (46-116) U/L Troponin I 0.022 (0.0-0.045) ng/mL B-Natriuretic Peptide 136 H (0-100) pg/mL Total Protein 7.0 (5.7-8.2) gm/dL Albumin 3.3 L (3.5-5.0) gm/dL Globulin 3.7 H (2.3-3.5) gm/dL Albumin/Globulin Ratio 0.9 L (1.2-2.2) Lipase 25 (12-53) U/L Procalcitonin 17.47 H (0.0-0.49) ng/ml Ur Collection Type Clean Catch Urine Color Yellow (Lt Yel-Yel) Urine Clarity Hazy (Clear/Hazy) Urine pH 5.5 (5.0-7.0) Ur Specific [place] 1.022 (1.001-1.035) Urine Protein 1+ A (Neg - Trace) Urine Glucose (UA) 4+ A (Negative) Urine Ketones 1+ A (Negative) Urine Blood 1+ A (Negative) Urine Nitrite Negative (Negative) Urine Bilirubin Negative (Negative) Urine Urobilinogen (Auto) 6.0 (0.0-1.0) mg/dL Ur Leukocyte Esterase Positive (Negative) Urine RBC 19 H (0-3) /hpf Urine WBC 171 H (0-5) /hpf Ur Squamous Epith Cells < 1 (0-5) /hpf Amorphous Crystals Present A (Absent) Urine Bacteria 3+ A (None) Hyaline Casts < 1 (0-1) /hpf Critical Care Time Critical Care Time Critical Care Time: Yes Total Critical Care Time (min.): 35 Attestation: The high probability of sudden, clinically significant deterioration in the patient's condition required the highest level of my preparedness to intervene urgently. The services I provided to this patient were to treat and/or prevent clinically significant deterioration. Services included the following: chart data review, reviewing nursing notes and/or old charts, documentation time, mgmt consultant collaboration regarding findings and treatment options, medication orders and management, direct patient care, vital sign assessments and ordering, interpreting and reviewing diagnostic studies and lab tests. Aggregate critical care time includes only time during which I was engaged in work directly related to the patient's care, as described above, whether at bedside or elsewhere in the Emergency Department. It did not include time spent performing other reported procedures or the services of residents, students, nurses or physician assistants. Discharge Plan Plan Patient Disposition: Admit Acute Care w/in Hospital Prescriptions/Referrals Prescriptions/Med Rec: No Action insulin glargine [Lantus U-100 Insulin] 100 unit/mL solution 40 unit SUBCUT BID Patient Comments: INJECT 40 UNITS BY SUBCUTANEOUS ROUTE ONCE PER INSULIN PROTOCOL (DME) FreeStyle Caitlin 3 Sensor Device See Rx Instructions .Route Qty: 1 4RF Rx Instructions: As directed (DME) FreeStyle Caitlin 3 [place] Misc See Rx Instructions .Route Qty: 1 0RF Rx Instructions: As directed (DME) FreeStyle Caitlin 2 [place] Misc See Rx Instructions .Route Qty: 1 0RF Rx Instructions: As directed (DME) FreeStyle Caitlin 2 Sensor Kit See Rx Instructions .Route Qty: 2 1RF Rx Instructions: As directed Glucerna Therapeutic Nutrition Liquid See Rx Instructions .ROUTE .COMPLEX Rx Instructions: 1 bottle by oral route 3 times daily Januvia 100 mg Tablet 1 mg PO QDAY Jardiance 10 mg Tablet 10 mg PO QAM Referrals: Easton Garcia PA-C [Primary Care Provider] - In 1 week Problem List Clinical Impression: Sepsis, Pneumonia Patient/Caregiver Discharge Instructions Print Language: Pashto Stand Alone Forms: Sudha Award Info., Patient Portal Info Letter
[2024-04-11] MEDS: cefTRIAXone 1,000 MG in SODIUM CHLORIDE 0.9% (P) 50 ML 100 MG IV (10:16)
[2024-04-11] MEDS: SODIUM CHLORIDE 0.9% 1000 ML 2,000 ML IV (10:17)
[2024-04-11 10:19] LABS: Lactate (Lactic Acid) 10.1 mMol/L (0.4-2.0)
[2024-04-11 10:21] LABS: Basophils # (Auto) 0.1 Thou/mm3 (0.0-0.2); Basophils % (Auto) 0 % (0-2.5); Eosinophils % (Auto) 0 % (0-10); Hematocrit 32.9 % (41.0-53.0); Hemoglobin 10.9 g/dL (13.5-16.0); Immature Granulocytes % (Auto) 4 % (0-0); Immature Granulocytes Auto 1.44 Thou/mm3 (0.00-0.00); Lymphocytes # (Auto) 0.8 Thou/mm3 (1.0-4.8); Lymphocytes % (Auto) 2 % (10-50); Mean Corpuscular HGB Conc 33.1 g/dl (31.0-37.0); Mean Corpuscular Hemoglobin 26.3 pg (25.0-35.0); Mean Corpuscular Volume 80 fL (80-100); Monocytes # (Auto) 0.7 Thou/mm3 (0.0-0.8); Monocytes % (Auto) 2 % (0-12); Neutrophils # (Auto) 31.4 Thou/mm3 (1.8-7.7); Neutrophils % (Auto) 91 % (37-80); Nucleated Red Blood Cell % 0 /100 WBC (0); Platelet Count 283 Thou/mm3 (140-440); RDW Standard Deviation 38.4 fL (35.1-43.9); Red Blood Count 4.14 Miln/mm3 (4.50-5.90)
[2024-04-11 10:34] LABS: INR 1.3 (0.9-1.3); Partial Thromboplastin Time 33.5 Seconds (22.0-36.0); Prothrombin Time 13.8 Seconds (9.0-12.2)
[2024-04-11 10:36] LABS: B-Type Natriuretic Peptide 136 pg/mL (0-100)
[2024-04-11 10:49] LABS: Alanine Aminotransferase 16 U/L (10-49); Albumin, Serum 3.3 gm/dL (3.5-5.0); Albumin/Globulin Ratio 0.9 (1.2-2.2); Alkaline Phosphatase 645 U/L (46-116); Anion Gap 17 (7-16); Aspartate Amino Transferase 22 U/L (0-34); BUN/Creatinine Ratio 17 Ratio (12-20); Blood Urea Nitrogen 17 mg/dL (9-23); Calcium 9.4 mg/dL (8.3-10.6); Carbon Dioxide 21.9 mMol/L (20.0-31.0); Chloride 88 mMol/L (98-107); Estimated Creatinine Clearance 91.8 mL/min (>60); Globulin 3.7 gm/dL (2.3-3.5); Glucose 383 mg/dL (74-106); Lipase 25 U/L (12-53); Magnesium 1.6 mg/dL (1.6-2.6); Osmolality,Calculated 272 (275-295); Phosphorous 4.5 mg/dL (2.4-5.1); Procalcitonin 17.47 ng/ml (0.0-0.49); Sodium 127 mMol/L (136-145); Troponin I 0.022 ng/mL (0.0-0.045); eGFR > 60 See Note
[2024-04-11 10:53] LABS: White Blood Count 34.5 Thou/mm3 (3.8-10.6)
--- NOTE | 2024-04-11 11:22 | XR_ITS ---
EXAMINATION: Ankle, left 3 views . Technique: Ankle AP, oblique, lateral 3 views Date and time of exam: April 11, 2024 1158 hours INDICATIONS: Patient fell today with injury to the ankle, ankle pain. FINDINGS: Prominent osteopenia No ankle fracture or dislocation Moderate osteoarthritis tibiotalar joint 3 mm plantar bony calcaneal spur IMPRESSION: No ankle fracture or dislocation
[2024-04-11 11:46] LABS: Collection Type, Urine Clean Catch
[2024-04-11 11:52] LABS: Amorphous Crystals,Urine Present (Absent); Bacteria,Urine 3+; Bilirubin,Urine Negative (Negative); Blood,Urine 1+ (Negative); Color,Urine Yellow (Lt Yel-Yel); Glucose, Urine 4+ (Negative); Hyaline Casts,Urine < 1 /hpf (0-1); Ketones,Urine 1+ (Negative); Leukocyte Esterase,Urine Positive (Negative); Nitrite,Urine Negative (Negative); PH,Urine 5.5 (5.0-7.0); Protein,Urine 1+ (Neg - Trace); RBC,Urine 19 /hpf (0-3); Specific Gravity,Urine 1.022 (1.001-1.035); Squamous Epithelial Cell,Urine < 1 /hpf (0-5); WBC,Urine 171 /hpf (0-5)
[2024-04-11 11:53] LABS: Clarity,Urine Hazy (Clear/Hazy)
[2024-04-11 12:20] LABS: Basophils # (Auto) 0.1 Thou/mm3 (0.0-0.2); Basophils % (Auto) 0 % (0-2.5); Eosinophils % (Auto) 0 % (0-10); Hematocrit 25.6 % (41.0-53.0); Immature Granulocytes % (Auto) 3 % (0-0); Immature Granulocytes Auto 1.24 Thou/mm3 (0.00-0.00); Lymphocytes % (Auto) 3 % (10-50); Mean Corpuscular HGB Conc 33.6 g/dl (31.0-37.0); Mean Corpuscular Hemoglobin 26.2 pg (25.0-35.0); Mean Corpuscular Volume 78 fL (80-100); Monocytes % (Auto) 6 % (0-12); Neutrophils # (Auto) 32.1 Thou/mm3 (1.8-7.7); Neutrophils % (Auto) 88 % (37-80); Nucleated Red Blood Cell # 0.07 Thou/mm3 (0.00-0.00); Nucleated Red Blood Cell % 0 /100 WBC (0); Platelet Count 232 Thou/mm3 (140-440); RDW Standard Deviation 38.2 fL (35.1-43.9); Red Blood Count 3.28 Miln/mm3 (4.50-5.90)
[2024-04-11 12:21] LABS: Beta Hydroxybutyrate 0.5 mmol/L (<0.6)
[2024-04-11] MEDS: INSULIN REG 100 UNITS/100 ML 100 UNIT in PRE-MIXED 1 BAG 8.618 UNIT IV (12:23)
[2024-04-11] MEDS: SODIUM CHLORIDE 0.9% 1000 ML 1,000 ML 250 ML IV (12:35)
[2024-04-11 12:41] LABS: Magnesium 1.5 mg/dL (1.6-2.6); Phosphorous 2.8 mg/dL (2.4-5.1)
[2024-04-11] MEDS: Magnesium Sulfate 2 GM Ivpb 2 GM/50 ML BAG IV (12:52)
[2024-04-11 12:54] LABS: Hemoglobin 8.6 g/dL (13.5-16.0); White Blood Count 36.4 Thou/mm3 (3.8-10.6)
[2024-04-11 12:54] LABS: Base Excess 4 (-3-3); HCO3 27 mEq/L (20-26); Inspired O2, VO2 Liters 1 L/min; O2 Saturation 95 % (91-98); PCO2 34 mmHg (32.0-48.0); PO2 63 mmHg (83-108); pH, Arterial 7.51 (7.35-7.45)
--- NOTE | 2024-04-11 12:55 | PC.NURSE ---
DR. ROPER HERE TO SEE PT AND STATES TO STOP INSULIN DRIP
--- NOTE | 2024-04-11 13:02 | PC.NURSE ---
per dr. isatu douglas
[2024-04-11 13:07] LABS: Allen Test Performed/OK; Puncture Site Right Radial
--- NOTE | 2024-04-11 13:12 | PC.NURSE ---
Dr. Montes notified that pt's temp is trending up, last temp. being 99.9F. Orders received from Dr. Montes.
[2024-04-11 13:13] LABS: Reflex Lactate? Y
[2024-04-11] MEDS: ACETAMINOPHEN 500 MG TABLET 1000 MG PO (13:16)
[2024-04-11] MEDS: SODIUM CHLORIDE 0.9% 1000 ML 1,000 ML 999 ML IV (13:17)
[2024-04-11 13:45] LABS: Lactic Acid, 3 HR 5.1 mMol/L (0.4-2.0)
[2024-04-11 13:46] LABS: Path Review Blood Smear Sent to Pathologist
--- NOTE | 2024-04-11 14:08 | PC.NURSE ---
Pt had a large bowel movement at this time.
--- NOTE | 2024-04-11 15:34 | PC.NURSE ---
Dr. Montes made aware that pt's BP is 90/62 with a MAP of 71 at this time; no new orders received from Dr. oMntes.
[2024-04-11 16:09] LABS: Glucose Estimated Average 326 mg/dL (80-131)
[2024-04-11 16:16] LABS: Bilirubin,Total 2.4 mg/dL (0.3-1.2); LDH (Lactate Dehydrogenase) 437 U/L (120-246)
[2024-04-11 20:13] LABS: Alanine Aminotransferase 9 U/L (10-49); Albumin, Serum 2.7 gm/dL (3.5-5.0); Albumin/Globulin Ratio 0.9 (1.2-2.2); Alkaline Phosphatase 390 U/L (46-116); Anion Gap 6 (7-16); Aspartate Amino Transferase 13 U/L (0-34); BUN/Creatinine Ratio 23 Ratio (12-20); Bilirubin,Total 1.7 mg/dL (0.3-1.2); Blood Urea Nitrogen 18 mg/dL (9-23); Calcium 8.2 mg/dL (8.3-10.6); Calcium (Corrected) 9.2 mg/dL (8.5-10.1); Carbon Dioxide 26.8 mMol/L (20.0-31.0); Chloride 92 mMol/L (98-107); Creatinine (Component) 0.8 mg/dL (0.6-1.3); Estimated Creatinine Clearance 114.8 mL/min (>60); Glucose 319 mg/dL (74-106); Osmolality,Calculated 265 (275-295); Potassium 3.9 mMol/L (3.4-5.1); Sodium 125 mMol/L (136-145); Total Protein 5.7 gm/dL (5.7-8.2); eGFR > 60 See Note
--- NOTE | 2024-04-11 20:33 | PD.EDADDENDU ---
Emergency Room Addendum Addendum Narrative: I took over the care from Dr. Montes at 6 PM on 04/11/2024, see his notes for complete H&P and ED course. I discussed the case with our hospitalist. About the presentation and exam and diagnostics and treatments here. And need of further care in the hospital. Will accept the patient for main diagnoses of sepsis. During my watch, the patient remained stable. Pablo Johnson MD
[2024-04-11] MEDS: HYDROcodone/APAP 5/325 TABLET 1 TAB PO (20:43)
[2024-04-11] MEDS: AZITHROMYCIN INJ 500 MG in SODIUM CHLORIDE 0.9% 250 ML 250 ML 250 MG IV (20:44)
[2024-04-11] MEDS: PIPER/TAZO 3.375 GM 3.375 GM/50 ML BAG IV (20:49)
--- NOTE | 2024-04-11 21:00 | ESCONSULT_ITS ---
HPI Data of Consult Consult date: 04/11/24 Requesting Physician: Maulik Buck MD Admitting Provider: Maulik Buck MD Attending Provider: Maulik Buck MD Primary Care Provider: Easton Hwang PA-C Consult Narrative Reason for consult: Anion gap metabolic acidosis History of present illness: Patient is a 53-year-old male with past medical history of type 2 insulin- dependent diabetes mellitus, hypertension, recent hospitalization for DKA who had presented to [facility] [place] following an episode of hypoglycemia at home. Patient states that he had taken his mealtime insulin and did not consume his meal so he began to develop hypoglycemia and had a seizure-like episode where his foot was stuck in the next at the bedside. Due to the foot pain and the hypoglycemia he came to the emergency department. In the emergency department patient had ED imaging for his ankle which did not reveal any acute fracture, or ankle dislocation. Emergency department had consulted ICU for admission for DKA due to the fact that patient's blood sugar was noted to be 353 with a anion gap of 17. He was started on an insulin drip in the emergency department and he had received 2 L of fluid as a bolus due to his sepsis criteria. Patient had tachycardia with leukocytosis and chest x-ray findings of bilateral pneumonia and a UA that was positive for leukocyte esterase. ED vitals: BP 114/74, pulse 134, RR 17, temp afebrile, O2 sat 96 on room air ED labs: WBC count 34.5, hemoglobin 10.9, left shift with neutrophilia and 91% and absolute neutrophil count at 31.4. Hyponatremia with sodium at 127, chloride 88, glucose 383, lactic acid noted to be 10.1 prior to fluid bolus T. bili 2.4, alk phos 645, LDH 437, BNP 136, Pro-Alcides 17.47. ABG: pH noted to be 7.51, CO2 34, O2 63 ED imaging: Chest x-ray revealing significant bilateral pneumonia Ankle x-ray: reveals no ankle fracture or dislocation of the left lower ankle EKG revealed atrial flutter is a read but appears to be sinus rhythm with tachycardia ED management: Tylenol 1 g, 2 L fluid bolus, Rocephin 1 g x 1, NS 1 more liter bolus cc:: cc: Maulik Buck MD Review of Systems Review of Systems Systems Reviewed: All systems reviewed, normal except as documented Exam Vital Signs Temp Pulse Resp BP Pulse Ox O2 Del Method O2 Flow Rate 101.2 F H 134 H 19 97/76 91 L Room Air 4 04/12/24 14:37 04/12/24 14:37 04/12/24 14:37 04/12/24 14:37 04/12/24 14:37 04/12/24 14:37 04/12/24 14:37 Narrative Exam General Appearance: Alert & Oriented X3, well-nourished male who is lying in bed in no acute distress HEENT: Skull symmetrical and atraumatic. Conjunctivae pink and moist. Pupils equal, round, reactive to light and accommodation (PERRL). External ear without lesion or discharge. Straight, nares patient, mucosa pink and dry appearing, no discharge. No thyroid nodule appreciated. No cervical lymphadenopathy. Cardio: Normal Rate and Rhythm with S1 and S2 heart sounds. No murmurs or extra heart sounds auscultated. No bruits on carotid auscultation. No peripheral edema or cyanosis. Lungs: Symmetric with good expansion. Chest and back non-tender. Breath sounds vesicular with some crackles Abdomen: Non-tender, Non-distended, Normal Reactive Bowel Sounds Neuro: Alert, cooperative, oriented to person, place, and time. Speech clear. CN grossly intact. Upper motor strength 5/5 and Lower motor strength 5/5. Sensation intact. Results Labs 04/12/24 21:45 04/12/24 21:45 Labs: Short CBC 04/12/24 Range/Units 05:35 WBC 34.8 H (3.8-10.6) Thou/mm3 Hgb 9.1 L (13.5-16.0) g/dL Hct 27.2 L (41.0-53.0) % Plt Count 237 (140-440) Thou/mm3 BMP 04/11/24 04/12/24 19:14 05:35 Sodium 125 L 125 L Potassium 3.9 3.4 D Chloride 92 L 91 L Carbon Dioxide 26.8 24.4 BUN 18 17 Creatinine 0.8 0.7 Glucose 319 H D 260 H D Calcium 8.2 L 8.2 L Liver Function 04/11/24 04/11/24 04/12/24 Range/Units 10:04 19:14 05:35 Total Bilirubin 2.4 H 1.7 H D 1.9 H (0.3-1.2) mg/dL AST 13 12 (0-34) U/L ALT 9 L 8 L (10-49) U/L Alkaline Phosphatase 390 H D 379 H (46-116) U/L Albumin 2.7 L D 2.7 L (3.5-5.0) gm/dL ABG Interpretation ABG results: 04/11/24 12:50 ABG pH 7.51 H ABG pCO2 34 ABG pO2 63 L ABG HCO3 27 H ABG O2 Saturation 95 ABG Base Excess 4 H Quality Measures Quality Measures sepsis Current suspected stage: sepsis Possible source: genitourinary Blood cultures ordered: completed in ED Antibiotic ordered: Yes Medications Home Medications and Allergies Home Medications ?Medication ?Instructions ?Recorded ?Confirmed ?Type insulin glargine 100 unit/mL 40 unit subcut BID 04/01/24 04/11/24 History subcutaneous solution (Lantus U-100 Insulin) empagliflozin 10 mg tablet 10 mg PO QAM 04/11/24 04/11/24 History (Jardiance) nut.tx.gluc.intol,lac-free,soy See Rx Instructions .Route .COMPLEX 04/11/24 04/11/24 History (Glucerna Therapeutic Nutrition oral liquid) sitagliptin phosphate 100 mg 1 mg PO QDAY 04/11/24 04/11/24 History tablet (Januvia) Allergies Allergy/AdvReac Type Severity Reaction Status Date / Time No Known Allergies Allergy Verified 04/03/24 20:09 Visit Medications Acetaminophen (Acetaminophen 325 Mg Tablet) 650 mg PO Q6H PRN PRN Reason: Mild Pain 1-3 or Fever >100.4 Stop: 05/11/24 20:21 Hydrocodone Bitart/Acetaminophen (Hydrocodone/Apap 5/325 Tablet) 1 tab PO Q4HR PRN PRN Reason: PAIN SCALE 4-6 (Moderate Stop: 04/16/24 20:21 Last Admin: 04/11/24 20:43 Dose: 1 tab Azithromycin (Azithromycin 250 Mg Tablet) 500 mg PO 2100 COLBY; Protocol Stop: 04/19/24 20:59 Dextrose (Dextrose 50%-Water Inj 50 Ml Syringe) 50 ml IV Q15MIN PRN PRN Reason: BG <50 OR BG <70 & pt unresponsive Stop: 05/11/24 20:31 Dextrose (Dextrose 50%-Water Inj 50 Ml Syringe) 25 ml IV Q15MIN PRN PRN Reason: BG 50-70 responsive npo pt Stop: 05/11/24 20:31 Glucagon (Glucagon Inj 1 Mg Vial) 1 mg IM Q15MIN PRN PRN Reason: BG <70, and no IV access Heparin Sodium (Porcine) (Heparin Sod Inj 5000 Unit/Ml Vial) 5,000 unit SC Q8HR COLBY Stop: 04/25/24 21:59 Last Admin: 04/12/24 14:20 Dose: 5,000 unit Piperacillin/Tazobactam/Dextrose (Zosyn) 3.375 gm in 50 mls @ 12.5 mls/hr IV Q8HR COLBY; Protocol Stop: 04/19/24 05:59 Last Admin: 04/12/24 14:20 Dose: 12.5 mls/hr Sodium Chloride (Ns) 1,000 mls @ 999 mls/hr IV .Q1H1M ONE Stop: 04/12/24 15:36 Last Admin: 04/12/24 14:52 Dose: 999 mls/hr Insulin Glargine (Insulin Glargine (Lantus) 5 Unit/0.05 Ml (Per 5 Units)) 20 unit SC BID COLBY Stop: 05/11/24 20:59 Last Admin: 04/12/24 08:24 Dose: 20 unit Insulin Human Lispro (Insulin Lispro (Admelog) 1 Unit/0.01 Ml Unit) 0 unit SC ACHS COLBY; Protocol Stop: 05/11/24 20:59 Last Admin: 04/12/24 12:18 Dose: 6 unit Ondansetron HCl (Ondansetron Inj 2 Mg/Ml Inj 2 Ml) 4 mg IV Q6H PRN; Protocol PRN Reason: NAUSEA OR VOMITING Stop: 05/11/24 20:21 Discontinued Medications Acetaminophen (Acetaminophen 500 Mg Tablet) 1,000 mg PO X1 ONE Stop: 04/11/24 13:13 Last Admin: 04/11/24 13:16 Dose: 1,000 mg Ceftriaxone Sodium 1,000 mg/ (Sodium Chloride) 50 mls @ 100 mls/hr IV X1 ONE Stop: 04/11/24 09:59 Last Infusion: 04/11/24 10:50 Dose: Infused Sodium Chloride (Ns) 2,000 mls @ 1,000 mls/hr IV .Q2H ONE Stop: 04/11/24 12:11 Last Infusion: 04/11/24 12:26 Dose: Infused Potassium Chloride (Kcl Ivpb) 10 meq in 100 mls @ 100 mls/hr IV .Q1H PRN PRN Reason: IF POTASSIUM LESS THAN 3.3 Stop: 05/11/24 11:58 Magnesium Sulfate (Magnesium Sulfate Ivpb) 2 gm in 50 mls @ 25 mls/hr IV .Q2H PRN PRN Reason: PER DKA PROTOCOL Stop: 05/11/24 11:58 Last Infusion: 04/11/24 15:00 Dose: Infused Insulin Human Regular 100 unit (/ IV Miscellaneous Supplies) 100 mls @ 8.618 mls/hr IV .[id number] PRN; Protocol PRN Reason: PER PROTOCOL Stop: 05/11/24 11:58 Last Titration: 04/11/24 13:06 Dose: 0 unit/kg/hr, 0 mls/hr Dextrose/Lactated Ringer's (D5-Lr) 1,000 mls @ 250 mls/hr IV .Q4H PRN PRN Reason: PER PROTOCOL Stop: 05/11/24 11:58 Lactated Ringer's (Lactated Ringers) 1,000 mls @ 250 mls/hr IV .Q4H PRN PRN Reason: PER PROTOCOL Stop: 04/12/24 11:58 Potassium Chloride 20 meq/ (Lactated Ringer's) 1,010 mls @ 250 mls/hr IV .Q4H3M PRN PRN Reason: K LEVEL 3.3 TO 5.3mM/L Stop: 05/11/24 11:58 Potassium Chloride 40 meq/ (Lactated Ringer's) 1,020 mls @ 250 mls/hr IV .Q4H5M PRN PRN Reason: K LEVEL < 3.3 mM/L Stop: 05/11/24 11:58 Potassium Chloride 40 meq/ (Dextrose/Lactated Ringer's) 1,020 mls @ 250 mls/hr IV .Q4H5M PRN PRN Reason: K LEVEL < 3.3mM/L Stop: 05/11/24 11:58 Potassium Cl/Dextrose/Lact Ringer's (Kcl 20 Meq/L In D5-Lr) 20 meq in 1,000 mls @ 250 mls/hr IV .Q4H PRN PRN Reason: K LEVEL 3.3 TO 5.3 mM/L Stop: 05/11/24 11:58 Potassium Chloride (Kcl Ivpb) 10 meq in 100 mls @ 50 mls/hr IV PRN PRN PRN Reason: K LEVEL 3.3 to 5.3 & BG > 200 Stop: 05/11/24 11:58 Potassium Phosphate (Pot Phos 15 Mmol In Ns 250 Ml) 15 mmol in 250 mls @ 62.5 mls/hr IV PRN PRN PRN Reason: Phosphate <= 1mg/dL Stop: 05/11/24 11:58 Sodium Phosphate 15 mmol/ (Sodium Chloride) 255 mls @ 62.5 mls/hr IV .Q4H5M PRN PRN Reason: Phosphate <= 1mg/dL and K> than 5.3 Stop: 05/11/24 11:58 Sodium Chloride (Ns) 1,000 mls @ 250 mls/hr IV .Q4H ONE Stop: 04/11/24 16:44 Last Infusion: 04/11/24 13:18 Dose: 0 mls/hr Sodium Chloride (Ns) 1,000 mls @ 999 mls/hr IV .Q1H1M ONE Stop: 04/11/24 14:15 Last Infusion: 04/11/24 14:20 Dose: Infused Azithromycin 500 mg/ Sodium (Chloride) 250 mls @ 250 mls/hr IV X1 ONE Stop: 04/11/24 21:44 Last Infusion: 04/11/24 21:45 Dose: Infused Piperacillin/Tazobactam/Dextrose (Zosyn) 3.375 gm in 50 mls @ 100 mls/hr IV X1 ONE Stop: 04/11/24 21:14 Last Infusion: 04/11/24 21:40 Dose: Infused Sodium Chloride (Ns) 1,000 mls @ 80 mls/hr IV .[id number] ONE Stop: 04/12/24 09:09 Last Admin: 04/11/24 22:01 Dose: 80 mls/hr Sodium Chloride (Ns) 1,000 mls @ 999 mls/hr IV .Q1H1M ONE Stop: 04/12/24 12:14 Last Admin: 04/12/24 11:33 Dose: 999 mls/hr Sodium Bicarbonate (Sodium Bicarb Inj 8.4% Syr 50 Ml Syringe) 50 ml IV PRN PRN PRN Reason: For ph <= to 7.0 Stop: 05/11/24 11:58 Sodium Chloride (Sodium Chloride Rt 10% 15 Ml Nebu) 5 ml INH X1 ONE Stop: 04/11/24 20:23 Last Admin: 04/11/24 23:41 Dose: 5 ml Assessment & Plan Plan Recommended emergency department order beta hydroxybutyrate and patient was found to have a negative beta hydroxybutyrate. After patient received 3 L fluid bolus in the emergency department lactic acidosis improved to 5.1. We suspect patient had lactic acidosis secondary to seizure-like activity and hypoglycemia. Once patient's blood sugars had returned to normal levels we did not suspect that he was having diabetic ketoacidosis. We believe that the anion gap was secondary to the elevated lactic acid. Recommended to continue with IV fluid hydration and strict euglycemic control. Recommend to continue with antibiotic therapy for pneumonia. Patient did not receive medications in the outpatient setting for his pneumonia or was either noncompliant so suggest that the patient is motivated to complete antibiotic therapy for complete resolution of pneumonia. Patient is doing fairly well and can be managed on medicine floors. Thank you for allowing ICU to consult and if further consultative services are needed please reach out once again Plan of care discussed with supervising attending Dr. Cheri Oconnor M.D. PGY-3 Attending Provider Attestation/Addendum Patient seen and examined with above resident, Lamont Oconnor MD. I agree with the findings, assessment, and plan of care as documented except for any differences below. Patient seen in the emergency department patient remained volume responsive with ongoing tachycardia. Patient was afebrile at this point. Patient started on empiric antibiotics. Well-known to us for prior history of DKA and recurrent admission for potential GI bleed which proved negative on endoscopy. Patient with left ankle pain after trauma during potential seizure episode as per his mother, imaging was however unrevealing for underlying fracture, suspect soft tissue injury and no evidence of cellulitis/septic arthritis on exam otherwise. Patient notably with fever and severe sepsis with prior urinary tract infection due to hyperglycemia and poor control of his diabetes. Suspect similar now. Patient was administered additional fluid after our assessment with nearly 50% clearance in his lactic acid. He remains otherwise hemodynamically stable with no other evidence of hypoperfusion and can be admitted to medicine service. I remain available for any needs should they arise. Patient on appropriate antibiotic regimen empirically awaiting cultures for further delineation/narrowing of antibiotic regimen. Total critical care time: Personally spent 30 minutes for review of physiologic parameters, directing plan of care during this time, coordination of care with other specialties, and counseling patient and his mother at bedside. This is exclusive of time spent teaching housestaff or performing separate billable procedures. Patient during this time required critical care services for severe sepsis secondary to unknown etiology. Patient remains at high risk for further morbidity and mortality though after intervention shows significant improvement suggesting stability for admission to [facility].
[2024-04-11] MEDS: INSULIN LISPRO (AdmeLOG) 1 UNIT/0.01 ML UNIT SC (21:34)
[2024-04-11] MEDS: INSULIN GLARGINE (Lantus) 5 UNIT/0.05 ML (PER 5 UNITS) 20 UNIT SC (21:35)
[2024-04-11] MEDS: HEPARIN SOD INJ 5000 UNIT/ML VIAL SC (21:37)
--- NOTE | 2024-04-11 21:40 | PC.RT ---
PT asked cup to be left at bedside and give him a chance to make an effort on his own without induction. PT refusing induction at this time.
[2024-04-11] MEDS: SODIUM CHLORIDE 0.9% 1000 ML 1,000 ML 80 ML IV (22:01)
[2024-04-11] MEDS: SODIUM CHLORIDE RT 10% 15 ML NEBU 5 ML INH (23:41)
--- NOTE | 2024-04-11 23:49 | PD.RESHP ---
Documentation for date of: 04/11/24 [facility] History of Present Illness History of present illness: CC: low blood sugar Patient is a 53-year-old male with a past medical history of diabetes mellitus type 2 insulin-dependent, hypertension (provided DC medication, per patient history), recent hospitalization on 03/18/2024 for DKA and Klebsiella bacteremia secondary to pneumonia, and recent hospitalization on (04/01/2024) for hypoglycemic episode and reactive leukocytosis. Patient patient presented to the emergency department via EMS after experiencing a hypoglycemic episode at home. Patient stated he gave himself 30 or 40 units of lispro versus the 10 units that was scheduled with mealtime. After the short acting bolus of insulin, patient lost consciousness and hit his left ankle on the bed side railing. Complaining of ankle pain. Patient's mother witnessed patient laying prone and having jerking of all 4 extremities. Patient stated that this has happened before with previous episodes of hypoglycemia where he loses consciousness and has shaking/jerking of all 4 extremities. Patient states he had that EMS checked his blood glucose during transportation but cannot recall reading. Denied postictal state or loss of control bladder. Patient denied headache or vision loss. Denied dysarthric speech or decreased motor function. Positive for polydipsia and polyuria. Denied recent sick contact. Denied fevers or chills. Patient denied chest pain or shortness of breath. Admitted on 04/11/2024 for acute hypoxic respiratory failure and sepsis, likely secondary to pneumonia. ER course: Vitals: T98.5, HR 134, RR 17, SpO2 96% room air now on 2 L oxygen nasal cannula 98%. CMP (04/11/2024) sodium 127 corrected sodium for glucose 130, BUN 17, creatinine 1.0 Glucose 383 and A1c 13 Beta hydroxylase 0.5 CBC (04/11/2024): WBC 36.4, hemoglobin 8.6, hematocrit 25.6, MCV 78 ABG 7.51, pCO2 34, P O2 63, PHCO3 27 Alkaline phosphatase 645 Lactate dehydrogenase 437 Lactic acid 10.1, 5.1 Pro-Alcides 17.4 UA: Positive esterase, WBC 17, crystals Chest x-ray bilateral pneumonia EKG atrial flutter with RVR Ankle x-ray: No fractures -Blood Cultures & Urine Cultures ordered in ER Meds: Ceftriaxone, normal saline 3 L, insulin drip started for 45 minutes given about 6 units total, magnesium sulfate 2gm PMH: -HTN (per patient, anti-hypertensive medication was DC) -DM Type 2, insulin dependent Past Surgical History/Hospitalizations: -previous admission for Hypoglycemia & leukocytosis (Discharged Apr 04, 2024) -Previous admission for Klebsiella bacteremia/Pneumonia (February 2024) Home Medication: -Jardiance 10 mg PO QDay -Januvia -Insulin Glargine 40 Units -Lispro 5 units with meals -Patient stated PCP, recently DC HTN medication Social History: Denied Alcohol Use Denied Illicit drug use Allergies: None Code Status: Full Code Review of Systems Review of Systems Narrative Review of Systems: General appearance: NO weight change, NO fatigue, NO weakness, NO fever, NO chills, NO night sweats, No cough Skin: NO rash, NO itching, NO sores, NO moles HEENT: NO Trauma, NO nausea, NO vomiting, NO visual changes, NO blurry vision, NO double vision, NO tinnitus, NO vertigo, NO ear discharge, NO rhinorrhea, NO stuffiness, NO sneezing, NO allergy, NO epistaxis. NO Hoarseness, NO sore throat, NO swollen neck. Cardiac: NO Palpitations, NO dyspnea on exertion, NO orthopnea, NO paroxysmal nocturnal dyspnea, NO edema Respiratory: Yes Shortness of Breath, NO Wheezing, NO Cough, NO Sputum, NO hemoptysis GI:NO appetite, NO nausea, NO vomiting, NO dysphagia, NO changes in bowel frequency, NO stool color, NO diarrhea, NO constipation, NO hemetemesis, NO hemorrhoids, NO melena, NO hematechezia, NO abdominal pain, NO jaundice Renal: NO frequency, NO hesitancy, NO urgency, NO hematuria, NO nocturia, NO incontinence MSK: NO muscle weakness, NO gout, NO arthritis, NO muscle stiffness, ankle pain Neuro: NO headaches, NO tremors, NO weakness, NO paralysis, NO seizures, NO loss of consciousness, NO numbness. Hem: NO anemia, NO easy bruising/bleeding, NO petechiae, NO purpura Endo: NO heat/cold intolerance, NO excessive sweating, NO polyuria, NO polydipsia, NO polyphagia, NO thyroid problems, NO diabetes Pysch: NO mood, NO anxiety, NO depression Exam Vital Signs Temp Pulse Resp BP Pulse Ox O2 Del Method O2 Flow Rate 97.8 F 112 H 20 109/74 92 L Nasal Cannula 2 04/11/24 21:52 04/11/24 23:38 04/11/24 23:38 04/11/24 21:52 04/11/24 23:38 04/11/24 21:52 04/11/24 23:38 Narrative Exam General Appearance: Alert & Oriented X3, well-nourished male who is lying in bed in no acute distress HEENT: Skull symmetrical and atraumatic. Conjunctivae pink and moist. Pupils equal, round, reactive to light and accommodation (PERRL). External ear without lesion or discharge. Straight, nares patient, mucosa pink and dry appearing, no discharge. No thyroid nodule appreciated. No cervical lymphadenopathy. Cardio: Normal Rate and Rhythm with S1 and S2 heart sounds. No murmurs or extra heart sounds auscultated. No bruits on carotid auscultation. No peripheral edema or cyanosis. Lungs: Symmetric with good expansion. Chest and back non-tender. Breath sounds vesicular with some crackles Abdomen: Non-tender, Non-distended, Normal Reactive Bowel Sounds Neuro: Alert, cooperative, oriented to person, place, and time. Speech clear. CN grossly intact. Upper motor strength 5/5 and Lower motor strength 5/5. Sensation intact. Results: Labs 04/11/24 12:12 04/11/24 19:14 Labs: Short CBC 04/11/24 04/11/24 Range/Units 10:04 12:12 WBC 34.5 H 36.4 H* (3.8-10.6) Thou/mm3 Hgb 10.9 L 8.6 L D (13.5-16.0) g/dL Hct 32.9 L 25.6 L (41.0-53.0) % Plt Count 283 D 232 D (140-440) Thou/mm3 BMP 04/11/24 04/11/24 10:04 19:14 Sodium 127 L 125 L Potassium 4.0 3.9 Chloride 88 L 92 L Carbon Dioxide 21.9 26.8 BUN 17 18 Creatinine 1.0 0.8 Glucose 383 H 319 H D Calcium 9.4 8.2 L Cardiac Enzymes 04/11/24 Range/Units 10:04 Troponin I 0.022 (0.0-0.045) ng/mL Liver Function 04/11/24 04/11/24 Range/Units 10:04 19:14 Total Bilirubin 2.4 H 1.7 H D (0.3-1.2) mg/dL AST 22 13 (0-34) U/L ALT 16 9 L (10-49) U/L Alkaline Phosphatase 645 H 390 H D (46-116) U/L Albumin 3.3 L 2.7 L D (3.5-5.0) gm/dL Urine 04/11/24 Range/Units 11:39 Urine Color Yellow (Lt Yel-Yel) Urine Clarity Hazy (Clear/Hazy) Urine pH 5.5 (5.0-7.0) Ur Specific [place] 1.022 (1.001-1.035) Urine Protein 1+ A (Neg - Trace) Urine Glucose (UA) 4+ A (Negative) ABG Interpretation ABG results: 04/11/24 12:50 ABG pH 7.51 H ABG pCO2 34 ABG pO2 63 L ABG HCO3 27 H ABG O2 Saturation 95 ABG Base Excess 4 H Quality Measures Quality Measures sepsis Current suspected stage: sepsis Possible source: genitourinary Blood cultures ordered: completed in ED Antibiotic ordered: Yes Medications Home Medications and Allergies Home Medications ?Medication ?Instructions ?Recorded ?Confirmed ?Type insulin glargine 100 unit/mL 40 unit subcut BID 04/01/24 04/11/24 History subcutaneous solution (Lantus U-100 Insulin) empagliflozin 10 mg tablet 10 mg PO QAM 04/11/24 04/11/24 History (Jardiance) nut.tx.gluc.intol,lac-free,soy See Rx Instructions .Route .COMPLEX 04/11/24 04/11/24 History (Glucerna Therapeutic Nutrition oral liquid) sitagliptin phosphate 100 mg 1 mg PO QDAY 04/11/24 04/11/24 History tablet (Januvia) Allergies Allergy/AdvReac Type Severity Reaction Status Date / Time No Known Allergies Allergy Verified 04/03/24 20:09 Visit Medications Acetaminophen (Acetaminophen 325 Mg Tablet) 650 mg PO Q6H PRN PRN Reason: Mild Pain 1-3 or Fever >100.4 Stop: 05/11/24 20:21 Hydrocodone Bitart/Acetaminophen (Hydrocodone/Apap 5/325 Tablet) 1 tab PO Q4HR PRN PRN Reason: PAIN SCALE 4-6 (Moderate Stop: 04/16/24 20:21 Last Admin: 04/11/24 20:43 Dose: 1 tab Dextrose (Dextrose 50%-Water Inj 50 Ml Syringe) 50 ml IV Q15MIN PRN PRN Reason: BG <50 OR BG <70 & pt unresponsive Stop: 05/11/24 20:31 Dextrose (Dextrose 50%-Water Inj 50 Ml Syringe) 25 ml IV Q15MIN PRN PRN Reason: BG 50-70 responsive npo pt Stop: 05/11/24 20:31 Glucagon (Glucagon Inj 1 Mg Vial) 1 mg IM Q15MIN PRN PRN Reason: BG <70, and no IV access Heparin Sodium (Porcine) (Heparin Sod Inj 5000 Unit/Ml Vial) 5,000 unit SC Q8HR [facility] Stop: 04/25/24 21:59 Last Admin: 04/11/24 21:37 Dose: 5,000 unit Piperacillin/Tazobactam/Dextrose (Zosyn) 3.375 gm in 50 mls @ 12.5 mls/hr IV Q8HR [facility]; Protocol Stop: 04/19/24 05:59 Azithromycin 500 mg/ Sodium (Chloride) 250 mls @ 250 mls/hr IV QDAY@2100 [facility] Stop: 04/18/24 20:30 Sodium Chloride (Ns) 1,000 mls @ 80 mls/hr IV .[id number] ONE Stop: 04/12/24 09:09 Last Admin: 04/11/24 22:01 Dose: 80 mls/hr Insulin Glargine (Insulin Glargine (Lantus) 5 Unit/0.05 Ml (Per 5 Units)) 20 unit SC BID [facility] Stop: 05/11/24 20:59 Last Admin: 04/11/24 21:35 Dose: 20 unit Insulin Human Lispro (Insulin Lispro (Admelog) 1 Unit/0.01 Ml Unit) 0 unit SC ACHS [facility]; Protocol Stop: 05/11/24 20:59 Last Admin: 04/11/24 21:34 Dose: 6 unit Ondansetron HCl (Ondansetron Inj 2 Mg/Ml Inj 2 Ml) 4 mg IV Q6H PRN; Protocol PRN Reason: NAUSEA OR VOMITING Stop: 05/11/24 20:21 Discontinued Medications Acetaminophen (Acetaminophen 500 Mg Tablet) 1,000 mg PO X1 ONE Stop: 04/11/24 13:13 Last Admin: 04/11/24 13:16 Dose: 1,000 mg Ceftriaxone Sodium 1,000 mg/ (Sodium Chloride) 50 mls @ 100 mls/hr IV X1 ONE Stop: 04/11/24 09:59 Last Infusion: 04/11/24 10:50 Dose: Infused Sodium Chloride (Ns) 2,000 mls @ 1,000 mls/hr IV .Q2H ONE Stop: 04/11/24 12:11 Last Infusion: 04/11/24 12:26 Dose: Infused Potassium Chloride (Kcl Ivpb) 10 meq in 100 mls @ 100 mls/hr IV .Q1H PRN PRN Reason: IF POTASSIUM LESS THAN 3.3 Stop: 05/11/24 11:58 Magnesium Sulfate (Magnesium Sulfate Ivpb) 2 gm in 50 mls @ 25 mls/hr IV .Q2H PRN PRN Reason: PER DKA PROTOCOL Stop: 05/11/24 11:58 Last Infusion: 04/11/24 15:00 Dose: Infused Insulin Human Regular 100 unit (/ IV Miscellaneous Supplies) 100 mls @ 8.618 mls/hr IV .[id number] PRN; Protocol PRN Reason: PER PROTOCOL Stop: 05/11/24 11:58 Last Titration: 04/11/24 13:06 Dose: 0 unit/kg/hr, 0 mls/hr Dextrose/Lactated Ringer's (D5-Lr) 1,000 mls @ 250 mls/hr IV .Q4H PRN PRN Reason: PER PROTOCOL Stop: 05/11/24 11:58 Lactated Ringer's (Lactated Ringers) 1,000 mls @ 250 mls/hr IV .Q4H PRN PRN Reason: PER PROTOCOL Stop: 04/12/24 11:58 Potassium Chloride 20 meq/ (Lactated Ringer's) 1,010 mls @ 250 mls/hr IV .Q4H3M PRN PRN Reason: K LEVEL 3.3 TO 5.3mM/L Stop: 05/11/24 11:58 Potassium Chloride 40 meq/ (Lactated Ringer's) 1,020 mls @ 250 mls/hr IV .Q4H5M PRN PRN Reason: K LEVEL < 3.3 mM/L Stop: 05/11/24 11:58 Potassium Chloride 40 meq/ (Dextrose/Lactated Ringer's) 1,020 mls @ 250 mls/hr IV .Q4H5M PRN PRN Reason: K LEVEL < 3.3mM/L Stop: 05/11/24 11:58 Potassium Cl/Dextrose/Lact Ringer's (Kcl 20 Meq/L In D5-Lr) 20 meq in 1,000 mls @ 250 mls/hr IV .Q4H PRN PRN Reason: K LEVEL 3.3 TO 5.3 mM/L Stop: 05/11/24 11:58 Potassium Chloride (Kcl Ivpb) 10 meq in 100 mls @ 50 mls/hr IV PRN PRN PRN Reason: K LEVEL 3.3 to 5.3 & BG > 200 Stop: 05/11/24 11:58 Potassium Phosphate (Pot Phos 15 Mmol In Ns 250 Ml) 15 mmol in 250 mls @ 62.5 mls/hr IV PRN PRN PRN Reason: Phosphate <= 1mg/dL Stop: 05/11/24 11:58 Sodium Phosphate 15 mmol/ (Sodium Chloride) 255 mls @ 62.5 mls/hr IV .Q4H5M PRN PRN Reason: Phosphate <= 1mg/dL and K> than 5.3 Stop: 05/11/24 11:58 Sodium Chloride (Ns) 1,000 mls @ 250 mls/hr IV .Q4H ONE Stop: 04/11/24 16:44 Last Infusion: 04/11/24 13:18 Dose: 0 mls/hr Sodium Chloride (Ns) 1,000 mls @ 999 mls/hr IV .Q1H1M ONE Stop: 04/11/24 14:15 Last Infusion: 04/11/24 14:20 Dose: Infused Azithromycin 500 mg/ Sodium (Chloride) 250 mls @ 250 mls/hr IV X1 ONE Stop: 04/11/24 21:44 Last Infusion: 04/11/24 21:45 Dose: Infused Piperacillin/Tazobactam/Dextrose (Zosyn) 3.375 gm in 50 mls @ 100 mls/hr IV X1 ONE Stop: 04/11/24 21:14 Last Infusion: 04/11/24 21:40 Dose: Infused Sodium Bicarbonate (Sodium Bicarb Inj 8.4% Syr 50 Ml Syringe) 50 ml IV PRN PRN PRN Reason: For ph <= to 7.0 Stop: 05/11/24 11:58 Sodium Chloride (Sodium Chloride Rt 10% 15 Ml Nebu) 5 ml INH X1 ONE Stop: 04/11/24 20:23 Last Admin: 04/11/24 23:41 Dose: 5 ml Assessment & Plan Plan Patient is a 53-year-old male with a past medical history of diabetes mellitus type 2 insulin-dependent, hypertension (provided DC medication, per patient history) with history of DKA, Klebsiella bacteremia, and hx of hypoglcemic episodes who was admitted on 04/11/2024 for acute hypoxic respiratory failure and sepsis secondary to pneumonia. #Acute Hypoxic Respiratory Failure #Sepsis, secondary to pneumonia #Pneumonia Etiology: acute hypoxic respiratory failure likely secondary to bilateral pneumonia. Previous admission for Klebsiella bacteremia, which can not be ruled out. Consider CT chest if pneumonia does not improve. DDx: Post viral pneumonia vs CHF, pending echo vs seizure, less likely as contributing to respiratory failure has had previous hypoglycemic episodes, consider EEG. Diagnostic Tests: Vitals: T98.5, HR 134, RR 17, SpO2 96% room air now on 2 L oxygen nasal cannula 98%. WBC 36.4 ABG 7.51, pCO2 34, P O2 63, PHCO3 27 Alkaline phosphatase 645 Lactate dehydrogenase 437 Lactic acid 10.1, 5.1 Pro-Alcides 17.4 -Chest x-ray bilateral pneumonia Plan: -Blood Culture -Sputum Culture -Zosyn 3.375 gm QDay IV (04/11/2024--) -Azithromycin 500 mg IV (04/11/2024--) -NS 1000 mls @ 80 cc -MRSA screen -CBC, CMP -lactic acid with morning labs #Hyperglycemia #Hypoglycemia, resolved. #DM type 2, insulin dependent Etiology: Poor glycemic control with A1c of 13.0. Diagnostics: Blood Glucose 383, A1c 13.0, Beta hydroxylase 0.5 Plan -Glargine 20 BID -Lispro Sliding Scale -Follow up with Fasting Blood Glucose #Atrial Flutter w/ RVR, Resolved Etiology: Likely in setting of Sepsis vs electrolyte imbalance VS CHF Diagnostics: EKG: Atrial Flutter BNP 136 Troponins 0.022 Plan: -Echo -Consider cardiology consult #Isomotic, Mild Hyponatremia Etiology: Likley secondary to hyperglycemia with a blood glucose of 326 in ER. Corrected Na 130 and corrected osmolality of 281 (normal range). Plan: -NS 1000 @ 80 cc -Follow up with morning CMP #UTI, complicated Likely secondary to diabetes mellitus type 2 since patient's blood glucose is poorly controlled, A1c 13.0 vs medication side effects Jardiance. Denied dysuria. Diagnostics: -UA: Positive esterase, WBC 17, crystals Plan: -Urine Culture -Dual coverage w/ Ceftriaxone from pneumonia coverage (04/11/2024) #L. Ankle sprain Secondary to trauma from left ankle hitting bed railing. Plan -Tylenol PRN and Davis 5 PRN -Jose M wrap #HTN Patient denied taking any anti-hypertensive medication Plan -Monitor BP Health Maintenance: Disp: Pt is currently admitted to floors for further management of Sepsis secondary to pneumonia, awaiting blood culture and echo. FEN: Diet Carbohydrate Consistent DVT: on subQ heparin Code: Full Code - The patient's plan was discussed with attending Dr. Cielo Hayes MD PGY1 Internal Medicine Attending Provider Attestation/Addendum I reviewed labs, imaging, EKG, home medications and prior available records. Face to face evaluation was performed by me. I have personally examined the patient and discussed assessment and plan with the IM team. I reviewed the resident note and agree with the plan with exceptions as below. 53-year-old male with history of type 2 diabetes, history of Klebsiella pneumonia, who presented with a chief complaint of generalized body tremors after injecting himself about 30 to 40 units of short acting insulin. He was found to have hypoglycemia and sepsis secondary to UTI versus bilateral pneumonia. Hypoglycemia: Resolved with IV dextrose. In the setting of accidental excessive insulin use. Patient is now hyperglycemic. Will resume insulin Lantus 20 twice daily plus sliding scale and monitor fingersticks. Continue hypoglycemia protocol. Sepsis secondary to acute UTI versus bilateral pneumonia: Started the patient on Zosyn and azithromycin. Send urine and blood cultures. Continue fluids per sepsis protocol. Trend WBC. Acute hypoxic respiratory failure: Likely in setting of bilateral pneumonia. Antibiotics as above. Continue oxygen and wean off as tolerated. Ordered echocardiogram to assess cardiac function. Lactic acidosis: Improved with IV hydration. Likely in the setting of sepsis versus hypoxia. Management as above. Trend lactic acid.
[2024-04-12] VITALS (17 sets, daily range): BP systolic 86–140; BP diastolic 64–117; PULSE 84–157; RESP 16–30; TEMP 35.4–38.4; O2SAT 90–99; BMI 28.0
--- NOTE | 2024-04-12 03:45 | PC.NURSE ---
Made MD aware of pt's heart rate.
[2024-04-12] MEDS: HEPARIN SOD INJ 5000 UNIT/ML VIAL SC ×2 (05:07→14:20)
[2024-04-12] MEDS: PIPER/TAZO 3.375 GM 3.375 GM/50 ML BAG IV ×2 (05:07→14:20)
[2024-04-12 05:44] LABS: Lactate (Lactic Acid) 2.1 mMol/L (0.4-2.0)
[2024-04-12 05:51] LABS: Basophils # (Auto) 0.1 Thou/mm3 (0.0-0.2); Basophils % (Auto) 0 % (0-2.5); Eosinophils % (Auto) 0 % (0-10); Hematocrit 27.2 % (41.0-53.0); Hemoglobin 9.1 g/dL (13.5-16.0); Immature Granulocytes % (Auto) 4 % (0-0); Immature Granulocytes Auto 1.24 Thou/mm3 (0.00-0.00); Lymphocytes # (Auto) 1.8 Thou/mm3 (1.0-4.8); Lymphocytes % (Auto) 5 % (10-50); Mean Corpuscular HGB Conc 33.5 g/dl (31.0-37.0); Mean Corpuscular Hemoglobin 26.5 pg (25.0-35.0); Mean Corpuscular Volume 79 fL (80-100); Monocytes # (Auto) 1.3 Thou/mm3 (0.0-0.8); Monocytes % (Auto) 4 % (0-12); Neutrophils # (Auto) 30.3 Thou/mm3 (1.8-7.7); Neutrophils % (Auto) 87 % (37-80); Nucleated Red Blood Cell # 0.06 Thou/mm3 (0.00-0.00); Nucleated Red Blood Cell % 0 /100 WBC (0); Platelet Count 237 Thou/mm3 (140-440); RDW Standard Deviation 38.9 fL (35.1-43.9); Red Blood Count 3.43 Miln/mm3 (4.50-5.90)
[2024-04-12 05:58] LABS: White Blood Count 34.8 Thou/mm3 (3.8-10.6)
[2024-04-12 07:39] LABS: Influenza A Ag Negative; Influenza B Ag Negative
[2024-04-12] MEDS: INSULIN GLARGINE (Lantus) 5 UNIT/0.05 ML (PER 5 UNITS) 20 UNIT SC (08:24)
[2024-04-12] MEDS: INSULIN LISPRO (AdmeLOG) 1 UNIT/0.01 ML UNIT SC ×3 (08:25→17:24)
[2024-04-12 08:44] LABS: Reflex Lactate? Y
[2024-04-12 09:44] LABS: Alanine Aminotransferase 8 U/L (10-49)
[2024-04-12 09:46] LABS: Lactic Acid, 3 HR 2.8 mMol/L (0.4-2.0)
[2024-04-12] MEDS: SODIUM CHLORIDE 0.9% 1000 ML 1,000 ML 999 ML IV ×4 (11:33→19:43)
[2024-04-12 11:42] LABS: Anion Gap 10 (7-16); BUN/Creatinine Ratio 24 Ratio (12-20); Blood Urea Nitrogen 17 mg/dL (9-23); Carbon Dioxide 24.4 mMol/L (20.0-31.0); Chloride 91 mMol/L (98-107); Creatinine (Component) 0.7 mg/dL (0.6-1.3); Estimated Creatinine Clearance 130.9 mL/min (>60); Potassium 3.4 mMol/L (3.4-5.1); Sodium 125 mMol/L (136-145); eGFR > 60 See Note
[2024-04-12 11:43] LABS: Albumin, Serum 2.7 gm/dL (3.5-5.0); Albumin/Globulin Ratio 0.8 (1.2-2.2); Alkaline Phosphatase 379 U/L (46-116); Aspartate Amino Transferase 12 U/L (0-34); Bilirubin,Total 1.9 mg/dL (0.3-1.2); Calcium 8.2 mg/dL (8.3-10.6); Calcium (Corrected) 9.2 mg/dL (8.5-10.1); Globulin 3.2 gm/dL (2.3-3.5); Glucose 260 mg/dL (74-106); Magnesium 1.9 mg/dL (1.6-2.6); Osmolality,Calculated 262 (275-295); Phosphorous 2.7 mg/dL (2.4-5.1); Total Protein 5.9 gm/dL (5.7-8.2)
[2024-04-12 11:44] LABS: Thyroid Stimulating Hormone 0.72 uIU/mL (0.55-4.78)
--- NOTE | 2024-04-12 11:54 | PD.RESPRO ---
Documentation for date of: 04/12/24 Subjective Subjective Interval history: Patient interviewed and examined at bedside this am. Patient admitted overnight for sepsis secondary to pneumonia vs uti. Vitals signs notable for tachycardia in the 100's - 120's. Patient's WBC markedly high on AM labs. Lactate also elevated at 2.8 with repeat at 2.1 for which we bolused 2 L NS and observed to be downtrending. Despite these measures, patient remained tachycardic and developed a fever of 101.2/ Repeat CBC showed WBC trending upwards to 40's. Patient does state that he feels better and denies any cough, chest pain. Broadened ABX coverage to include MRSA with vancomycin in addition to pip/tazo and azithromycin. Will order CT-C/A/P in addition to head CT as the patient does have some slowing and appears confused at times. Will repeat Bcx's as they are 2/2 bottles GPC. Exam Vital Signs Temp Pulse Resp BP Pulse Ox O2 Del Method O2 Flow Rate 98.1 F 120 H 18 99/78 96 Room Air 3 04/12/24 08:00 04/12/24 08:20 04/12/24 08:20 04/12/24 08:00 04/12/24 08:20 04/12/24 08:00 04/12/24 08:20 Narrative Exam General: Not in any visible or apparent acute distress, sick appearing, alert, pleasant and interactive HEENT: NC/AT, EOMI, good conjugate gaze, moist mucous membranes, oropharynx clear Neck: Supple, No masses, No JVD, normal range of motion CVS: S1S2 increased rate and rhythm, No murmurs, rubs or gallops Lungs: Normal respiratory effort, no wheezing rhonchi or rales, CTAB Abd: Soft, non-tenderness to palpation, non-distended Ext: No edema, warm well perfused, LLE decreased ankle ROM 2/2 recent injury, painful with minimal dorsifleexion and plantar flexion Skin: Intact, no rashes, no lesions, no erythema Neuro: AOx3, no gross focal neurological deficits Objective Labs 04/12/24 21:45 04/12/24 21:45 Labs: Laboratory Results - last 24 hr 04/11/24 04/11/24 04/11/24 10:04 12:12 12:50 WBC 36.4 H* RBC 3.28 L Hgb 8.6 L D Hct 25.6 L MCV 78 L MCH 26.2 MCHC 33.6 RDW Std Deviation 38.2 Plt Count 232 D Neut % (Auto) 88 H Lymph % (Auto) 3 L Barton % (Auto) 6 Eos % (Auto) 0 Baso % (Auto) 0 Neut # (Auto) 32.1 H Lymph # (Auto) 1.0 Barton # (Auto) 2.0 H Eos # (Auto) 0.0 Baso # (Auto) 0.1 Immature Gran # (Auto) 1.24 H Absolute Nucleated RBC 0.07 H Immature Gran % 3 H Nucleated RBC % 0 Smear Path Review Sent to Pathologist Puncture Site Right Radial ABG pH 7.51 H ABG pCO2 34 ABG pO2 63 L ABG HCO3 27 H ABG O2 Saturation 95 ABG Base Excess 4 H Oxygen Liter Flow 1 Sodium Potassium Chloride Carbon Dioxide Anion Gap BUN Creatinine Estim Creat Clear Calc eGFR BUN/Creatinine Ratio Glucose Estimated Ave Glu mg/dL 326 H Hemoglobin A1c 13.0 H Calculated Osmolality Lactic Acid Calcium Corrected Calcium Phosphorus 2.8 Magnesium 1.5 L Total Bilirubin 2.4 H AST ALT Alkaline Phosphatase Lactate Dehydrogenase 437 H Total Protein Albumin Globulin Albumin/Globulin Ratio Beta-Hydroxybutyrate/Acetoacetate 0.5 TSH Influenza A (Rapid) Influenza B (Rapid) 04/11/24 04/11/24 04/12/24 13:26 19:14 05:35 WBC 34.8 H RBC 3.43 L Hgb 9.1 L Hct 27.2 L MCV 79 L MCH 26.5 MCHC 33.5 RDW Std Deviation 38.9 Plt Count 237 Neut % (Auto) 87 H Lymph % (Auto) 5 L Barton % (Auto) 4 Eos % (Auto) 0 Baso % (Auto) 0 Neut # (Auto) 30.3 H Lymph # (Auto) 1.8 Barton # (Auto) 1.3 H Eos # (Auto) 0.0 Baso # (Auto) 0.1 Immature Gran # (Auto) 1.24 H Absolute Nucleated RBC 0.06 H Immature Gran % 4 H Nucleated RBC % 0 Smear Path Review Puncture Site ABG pH ABG pCO2 ABG pO2 ABG HCO3 ABG O2 Saturation ABG Base Excess Oxygen Liter Flow Sodium 125 L 125 L Potassium 3.9 3.4 D Chloride 92 L 91 L Carbon Dioxide 26.8 24.4 Anion Gap 6 L 10 BUN 18 17 Creatinine 0.8 0.7 Estim Creat Clear Calc 114.8 130.9 eGFR > 60 > 60 BUN/Creatinine Ratio 23 H 24 H Glucose 319 H D [address] Glu mg/dL Hemoglobin A1c Calculated Osmolality 265 L 262 L Lactic Acid 5.1 H* 2.1 H Calcium 8.2 L 8.2 L Corrected Calcium 9.2 9.2 Phosphorus 2.7 Magnesium 1.9 Total Bilirubin 1.7 H D 1.9 H AST 13 12 ALT 9 L 8 L Alkaline Phosphatase 390 H D 379 H Lactate Dehydrogenase Total Protein 5.7 5.9 Albumin 2.7 L D 2.7 L Globulin 3.0 3.2 Albumin/Globulin Ratio 0.9 L 0.8 L Beta-Hydroxybutyrate/Acetoacetate TSH 0.72 Influenza A (Rapid) Influenza B (Rapid) 04/12/24 04/12/24 06:30 09:28 WBC RBC Hgb Hct MCV MCH MCHC RDW Std Deviation Plt Count Neut % (Auto) Lymph % (Auto) Barton % (Auto) Eos % (Auto) Baso % (Auto) Neut # (Auto) Lymph # (Auto) Barton # (Auto) Eos # (Auto) Baso # (Auto) Immature Gran # (Auto) Absolute Nucleated RBC Immature Gran % Nucleated RBC % Smear Path Review Puncture Site ABG pH ABG pCO2 ABG pO2 ABG HCO3 ABG O2 Saturation ABG Base Excess Oxygen Liter Flow Sodium Potassium Chloride Carbon Dioxide Anion Gap BUN Creatinine Estim Creat Clear Calc eGFR BUN/Creatinine Ratio Glucose Estimated Ave Glu mg/dL Hemoglobin A1c Calculated Osmolality Lactic Acid 2.8 H Calcium Corrected Calcium Phosphorus Magnesium Total Bilirubin AST ALT Alkaline Phosphatase Lactate Dehydrogenase Total Protein Albumin Globulin Albumin/Globulin Ratio Beta-Hydroxybutyrate/Acetoacetate TSH Influenza A (Rapid) Negative Influenza B (Rapid) Negative ABG Interpretation ABG results: 04/11/24 12:50 ABG pH 7.51 H ABG pCO2 34 ABG pO2 63 L ABG HCO3 27 H ABG O2 Saturation 95 ABG Base Excess 4 H Quality Measures Quality Measures sepsis Current suspected stage: sepsis Possible source: genitourinary Blood cultures ordered: completed in ED Antibiotic ordered: Yes Assessment & Plan Assessment Current Active Medications: Generic Name Dose Route Start Last Admin Trade Name Freq PRN Reason Stop Dose Admin Acetaminophen 650 mg 11/22/24 20:22 Acetaminophen 325 Mg Tablet PO 05/11/24 20:21 Q6H PRN Mild Pain 1-3 or Fever >100.4 Hydrocodone Bitart/Acetaminophen 1 tab 04/11/24 20:22 04/11/24 20:43 Hydrocodone/Apap 5/325 Tablet PO 04/16/24 20:21 1 tab Q4HR PRN Administration PAIN SCALE 4-6 (Moderate Azithromycin 500 mg 04/12/24 21:00 Azithromycin 250 Mg Tablet PO 04/19/24 20:59 2100 [facility] Protocol Dextrose 50 ml 04/11/24 20:32 Dextrose 50%-Water Inj 50 Ml Syringe IV 05/11/24 20:31 Q15MIN PRN BG <50 OR BG <70 & pt unresponsive Dextrose 25 ml 04/11/24 20:32 Dextrose 50%-Water Inj 50 Ml Syringe IV 05/11/24 20:31 Q15MIN PRN BG 50-70 responsive npo pt Glucagon 1 mg 04/11/24 20:32 Glucagon Inj 1 Mg Vial IM Q15MIN PRN BG <70, and no IV access Heparin Sodium (Porcine) 5,000 unit 04/11/24 22:00 04/12/24 05:07 Heparin Sod Inj 5000 Unit/Ml Vial SC 04/25/24 21:59 5,000 unit Q8HR COLBY Administration Piperacillin/Tazobactam/Dextrose 3.375 gm in 50 mls @ 12.5 mls/hr 04/12/24 06:00 04/12/24 05:07 Zosyn IV 04/19/24 05:59 12.5 mls/hr Q8HR COLBY Administration Protocol Sodium Chloride 1,000 mls @ 999 mls/hr 04/12/24 11:14 04/12/24 11:33 Ns IV 04/12/24 12:14 999 mls/hr .Q1H1M ONE Administration Insulin Glargine 20 unit 04/11/24 21:00 04/12/24 08:24 Insulin Glargine (Lantus) 5 Unit/0.05 Ml (Per 5 Units) SC 05/11/24 20:59 20 unit BID COLBY Administration Insulin Human Lispro 0 unit 04/11/24 21:00 04/12/24 08:25 Insulin Lispro (Admelog) 1 Unit/0.01 Ml Unit SC 05/11/24 20:59 6 unit ACHS COLBY Administration Protocol Ondansetron HCl 4 mg 04/11/24 20:22 Ondansetron Inj 2 Mg/Ml Inj 2 Ml IV 05/11/24 20:21 Q6H PRN NAUSEA OR VOMITING Protocol Plan Plan Patient is a 53-year-old male with a past medical history of diabetes mellitus type 2 insulin-dependent, hypertension (provided DC medication, per patient history) with history of DKA, Klebsiella bacteremia, and hx of hypoglcemic episodes who was admitted on 04/11/2024 for acute hypoxic respiratory failure and sepsis secondary to pneumonia. #Acute Hypoxic Respiratory Failure #Sepsis, secondary to pneumonia #Pneumonia Etiology: acute hypoxic respiratory failure likely secondary to bilateral pneumonia. Patient with increased O2 reqs from baseline. WBC trending upwards with fever, tachycardia and source of pneumonia as evidenced on CXR. Despite administering fluids, patient still remains tachycardic. Will broaden ABX coverage with vancomycin to include S. Aureus coverage. WIll also order Ct C/A/P to rule out intrabdominal source of infection. Plan: -Blood Culture: 2/2 GPC, will repeat Bcx's tomorrow -Sputum Culture: Pending -MRSA screen: Pending -Pip/Tazo 3.375 gm QDay IV (04/11/2024--) -Azithromycin 500 mg IV (04/11/2024--) -Vancomycin (04/12/2024- ) #Hyperglycemia #Hypoglycemia, resolved. #DM type 2, insulin dependent Etiology: Poor glycemic control with A1c of 13.0. Diagnostics: Blood Glucose 383, A1c 13.0, Beta hydroxylase 0.5 Plan -Glargine 20 BID -Lispro Sliding Scale -Follow up with Fasting Blood Glucose #Atrial Flutter w/ RVR, Resolved Etiology: Likely in setting of Sepsis vs electrolyte imbalance VS CHF Diagnostics: EKG: Atrial Flutter BNP 136 Troponins 0.022 Plan: -Echo -Consider cardiology consult #Pseudohyponatremia Etiology: Likley secondary to hyperglycemia with a blood glucose of 326 in ER. Corrected Na 130 and corrected osmolality of 281 (normal range). Plan: -Follow up with morning CMP #UTI, complicated Likely secondary to diabetes mellitus type 2 since patient's blood glucose is poorly controlled, A1c 13.0 vs medication side effects Jardiance. Denied dysuria. Diagnostics: -UA: Positive esterase, WBC 17, crystals Plan: -Urine Culture - coverage w/ pip/tazo from pneumonia coverage (04/11/2024) #L. Ankle sprain Secondary to trauma from left ankle hitting bed railing. Plan -Tylenol PRN and [place] 5 PRN -Jose M wrap #HTN Patient denied taking any anti-hypertensive medication Plan -Monitor BP Health Maintenance: Disp: Pt is currently admitted to floors for further management of Sepsis secondary to pneumonia, awaiting blood culture and echo. FEN: Diet Carbohydrate Consistent DVT: on subQ heparin Code: Full Code Patient's case was discussed with supervising attending physician Dr. Shantal Mckeon M.D. Internal Medicine PGY-3 Attending Provider Attestation/Addendum I, Kira Murguia DO, attest that I was physically present for the ojnas portions of the service and evaluated the patient with the resident and I reviewed and discussed the case with the resident and agree with the resident's findings and plans of care as documented above Patient seen and evaluated at 9AM. Patient stated that he was came to ED due to his ankle. He states that he had injured it previously from a syncopal episode. He also stated that he had been feeling unwell due to confusion of his dose of short acting insulin with long acting insulin resulting in low blood glucose. He denied any chest pain, shortness of breath, fevers, chills, abdominal pain, diarrhea or dysuria. Patient only complained of pain in his left ankle that was in a brace. Ankle appeared mildly edematous, but no erythema noted. Physical exam was otherwise unremarkable. WBCs remain elevated at 34.8 despite antibiotics. However, review of medications given was contradictory to patient's story as he presented to the ED with blood glucose of 383 and started on an insulin drip. Patient stated that he was feeling well otherwise. supervisor roving department strips were reviewed and patient was noted to be persistently tachycardic in the 130s. Lactic acid downtrending. 1L of normal saline bolus was ordered, in addition to maintenance fluids. Patient was noted to have fever of 101.2 around 14:40. Labs were repeated. Patient remained tachycardic and another 1L bolus of NS was ordered. Leukocytosis was noted to be uptrending at 43 with worsening hyponatremia of 123 and hypochloremia of 91. Bilirubin was also noted to be elevated. Antibiotics were broadened to vancomycin and zosyn. Patient was re-evaluated at 15:30. Patient denied any lightheadedness, palpitations, chest pain or shortness of breath. Patient remained tachycardic on exam and lungs werre clear to auscultation b/l. Patient was able to flex and extend left ankle with some limitation of range of motion due to pain. Concern for septic arthritis is less likely. However, patient noted to have GNR in urine cultures and gram positive bacteremia in 2/2 blood cultures. and mother at bedside stated that patient has been ambulatory at home despite pain. However, he was noted to have intermittent fevers at night for the past 2.5 days. Due to fevers, patient was advised by his outpt physician to go to ED during his follow up appointment for his ankle sprain. Family updated regarding patient's condition and will be transferred to telemetry for closer monitoring due to severe sepsis. CT chest/ abd/ pelvis was ordered to find source of infection. CT head was also ordered as stated that patient would get confused when he was febrile, but he is otherwise A&Ox3. No focal neurological deficits noted.
--- NOTE | 2024-04-12 14:20 | PC.NURSE ---
Dr Wallace notified that despite bolus, pt remains tachy in the 130s
--- NOTE | 2024-04-12 14:37 | PC.NURSE ---
Notified dr Wallace of updated vitals with fever, tachycardia, continued low 02 sats down to 88% on 3L NC. administered tylenol, placed oxymask at 10L and continuous 02 monitoring. Pt 02 at 98%. Ordered labs and additional 1L NS. at bedside, updated of situation.
[2024-04-12] MEDS: ACETAMINOPHEN 325 MG TABLET 650 MG PO (14:52)
[2024-04-12 14:59] LABS: Lactate (Lactic Acid) 2.1 mMol/L (0.4-2.0)
[2024-04-12 15:02] LABS: Basophils # (Auto) 0.1 Thou/mm3 (0.0-0.2); Basophils % (Auto) 0 % (0-2.5); Eosinophils # (Auto) 0.3 Thou/mm3 (0.0-0.5); Eosinophils % (Auto) 1 % (0-10); Hematocrit 25.1 % (41.0-53.0); Immature Granulocytes % (Auto) 3 % (0-0); Immature Granulocytes Auto 1.33 Thou/mm3 (0.00-0.00); Lymphocytes # (Auto) 2.1 Thou/mm3 (1.0-4.8); Lymphocytes % (Auto) 5 % (10-50); Mean Corpuscular HGB Conc 33.9 g/dl (31.0-37.0); Mean Corpuscular Hemoglobin 26.2 pg (25.0-35.0); Mean Corpuscular Volume 78 fL (80-100); Monocytes # (Auto) 2.4 Thou/mm3 (0.0-0.8); Monocytes % (Auto) 5 % (0-12); Neutrophils # (Auto) 37.3 Thou/mm3 (1.8-7.7); Neutrophils % (Auto) 86 % (37-80); Nucleated Red Blood Cell % 0 /100 WBC (0); Platelet Count 197 Thou/mm3 (140-440); RDW Standard Deviation 38.8 fL (35.1-43.9); Red Blood Count 3.24 Miln/mm3 (4.50-5.90)
[2024-04-12 15:19] LABS: Hemoglobin 8.5 g/dL (13.5-16.0); White Blood Count 43.4 Thou/mm3 (3.8-10.6)
--- NOTE | 2024-04-12 15:21 | PC.NURSE ---
Critical value reported to Dr Wallace, elevated WBCs. Updated MD that bolus was finished and patient remained tachycardic in 120s.
[2024-04-12 15:30] LABS: Chloride 91 mMol/L (98-107); Potassium 3.4 mMol/L (3.4-5.1); Sodium 123 mMol/L (136-145)
[2024-04-12 15:31] LABS: Anion Gap 6 (7-16); Aspartate Amino Transferase 15 U/L (0-34); BUN/Creatinine Ratio 30 Ratio (12-20); Bilirubin,Total 2.8 mg/dL (0.3-1.2); Blood Urea Nitrogen 18 mg/dL (9-23); Calcium 8.1 mg/dL (8.3-10.6); Carbon Dioxide 25.8 mMol/L (20.0-31.0); Creatinine (Component) 0.6 mg/dL (0.6-1.3); Estimated Creatinine Clearance 152.8 mL/min (>60); Glucose 233 mg/dL (74-106); Osmolality,Calculated 256 (275-295); eGFR > 60 See Note
[2024-04-12 15:32] LABS: Alanine Aminotransferase < 7 U/L (10-49); Albumin, Serum 2.7 gm/dL (3.5-5.0); Albumin/Globulin Ratio 0.9 (1.2-2.2); Alkaline Phosphatase 357 U/L (46-116); Calcium (Corrected) 9.1 mg/dL (8.5-10.1); Total Protein 5.7 gm/dL (5.7-8.2)
--- NOTE | 2024-04-12 15:40 | PC.NURSE ---
Dr Wallace and Dr Murguia in to assess patient and updated patient and at bedside of the plan to upgrade to telemetry. Ginny Banks made aware.
[2024-04-12 16:03] LABS: Path Review Blood Smear Sent to Pathologist
[2024-04-12] MEDS: SODIUM CHLORIDE RT 10% 15 ML NEBU 5 ML INH (16:10)
[2024-04-12] MEDS: VANCOMYCIN/D5W 1,250 MG IVPB 250 ML 120 MG IV (16:27)
--- NOTE | 2024-04-12 17:13 | PC.NURSE ---
Received call from Dr Wallace inquiring as to when the patient will get his CT scan, called CT and they said they could be ready for him now. Notified patient and family that CT was ready for him, IV locked him, no signs of distress, notified Jett King.
[2024-04-12 17:15] LABS: Respiratory Syncytial Virus Ag Negative (Negative)
--- NOTE | 2024-04-12 17:28 | PC.NURSE ---
Entered room, pt in wheelchair, unresponsive, pale, called INTERPRETATIVE DANCER, Jocelyn slope hoist operator at bedside, attempted to arouse patient, patient continued to be unresponsive, has episode of urinary incontinence. MITCH Banks and Curtis TEMPLETON lifted patient to bed. at bedside
--- NOTE | 2024-04-12 17:30 | PC.NURSE ---
Dr Wallace at bedside palpating carotid, noted faint pulse, attempting to get vital signs on pt, Dr Case then walked in, assess pt and no pulse noted. Initiated CPR, Yaya Aguiar called at 1730. See Yaya Aguiar paper form for details of the code and interventions provided.
--- NOTE | 2024-04-12 17:48 | EKG_ITS ---
[facility] Test Date: 2024-04-12 Pat Name: OMAR PEREZ Department: Room: S358A Gender: Male Circus Agent: EPHRAIM : 1970 Requested By: Niranjan Dobson Order Number: [id number] Reading MD: Niranjan Dobson Measurements Intervals Brimson Rate: 160 P: NE: QRS: 240 QRSD: 123 T: 21 QT: 296 QTc: 484 Interpretive Statements ATRIAL FLUTTER/TACHYCARDIA WITH RAPID VENTRICULAR RESPONSE MARKED RIGHT AXIS DEVIATION RIGHT BUNDLE BRANCH BLOCK Compared to ECG 04/11/2024 10:03:54 Right-axis deviation now present Right bundle-branch block now present Left anterior fascicular block no longer present Myocardial infarct finding no longer present T-wave abnormality no longer present Possible ischemia no longer present /store/S0/[id number]/ecg/[id number].pdf
[2024-04-12 17:56] LABS: Reflex Lactate? Y
[2024-04-12] MEDS: EPINEPHrine Inj 16 MG in SODIUM CHLORIDE 0.9% 250 ML 234 ML 4.021 MG IV (17:58)
--- NOTE | 2024-04-12 18:09 | PC.NURSE ---
Pt transferred to ICU, RT bagging patient, Dr Alonzo, ICU MITCH Lemus took pt to ICU.
[2024-04-12] MEDS: VASOPRESSIN IN NS IVPB 20 UNIT/100 ML BAG 9 UNIT IV ×2 (18:24→20:54)
--- NOTE | 2024-04-12 18:24 | PC.NURSE ---
Gave report to Niki DEMARCO accepting pt to ICU, all questions answered
[2024-04-12] MEDS: ROCURONIUM INJ 10 MG/ML VIAL 10 ML 100 MG IVP (18:32)
--- NOTE | 2024-04-12 18:36 | XR_ITS ---
Examination: AP chest single view Technique: AP supine portable chest single view Exam date and time: April 12, 2024 1846 hrs. Comparison April 11, 2024 Indications: Hypoxic respiratory failure today post intubation Findings: Worsening bilateral pneumonia Mild enlargement cardiac contour with prominent vascular congestion Endotracheal tube tip 4.8 cm above janet Orogastric tube sidehole at the GE junction, prominently air distended stomach Impression: Worsening extensive bilateral pneumonia Mild associated heart failure Advance the orogastric tube 7 cm with follow-up KUB
[2024-04-12 18:52] LABS: Basophils # (Auto) 0.1 Thou/mm3 (0.0-0.2); Basophils % (Auto) 0 % (0-2.5); Eosinophils # (Auto) 0.1 Thou/mm3 (0.0-0.5); Eosinophils % (Auto) 0 % (0-10); Hematocrit 21.9 % (41.0-53.0); Immature Granulocytes % (Auto) 14 % (0-0); Immature Granulocytes Auto 7.16 Thou/mm3 (0.00-0.00); Lymphocytes # (Auto) 9.3 Thou/mm3 (1.0-4.8); Lymphocytes % (Auto) 18 % (10-50); Mean Corpuscular Hemoglobin 26.4 pg (25.0-35.0); Mean Corpuscular Volume 83 fL (80-100); Monocytes # (Auto) 2.4 Thou/mm3 (0.0-0.8); Monocytes % (Auto) 5 % (0-12); Neutrophils # (Auto) 32.1 Thou/mm3 (1.8-7.7); Neutrophils % (Auto) 63 % (37-80); Nucleated Red Blood Cell # 0.33 Thou/mm3 (0.00-0.00); Nucleated Red Blood Cell % 1 /100 WBC (0); Platelet Count 164 Thou/mm3 (140-440); RDW Standard Deviation 43.7 fL (35.1-43.9); Red Blood Count 2.65 Miln/mm3 (4.50-5.90)
[2024-04-12] MEDS: TENECTEPLASE INJ 50 MG VIAL 45 MG IV (19:00)
[2024-04-12 19:03] LABS: White Blood Count 51.1 Thou/mm3 (3.8-10.6)
--- NOTE | 2024-04-12 19:08 | ESOP_ITS ---
Procedures Procedure Date / Time 04/12/20241907 Procedure Narrative Procedure Narrative: All procedures performed during cardiac arrest/ poly-arrest phase given recurrent loss of pulse during resuscitative efforts. See recorder sheets for full details. Arterial Line Indication(s): inability to monitor non-invasive BP Informed consent obtained: procedure done urgently Technique used: guide wire technique Post-Procedure: line sutured into place Patient tolerated procedure: no complications EBL(ml): 20 Site: right and femoral Central Line Placement Right Femoral: Indication(s): poor, or inadequate peripheral venous access Informed consent obtained: procedure done urgently Central line lumen inserted: triple Complications: none Procedure comment: placed during cardiac arrest Left Femoral: Indication(s): poor, or inadequate peripheral venous access Informed consent obtained: obtained from surrogate decision maker Time out done, and the following verified: correct patient Patient placed on monitor/pulse ox: Yes Hand Hygiene: scrub Ultrasound used for placement: Yes Sterile Technique if Ultrasound used, including sterile gel: n/a (poly- arrest) Central line lumen inserted: single (8,5F introducer catheter) Post procedure: sutured in place EBL(ml): 10 Intubation Indication(s): inability to protect airway Informed consent obtained: procedure done urgently Sedative: none Paralytic: other (none) Laryngoscope: fiber optic video scope ET tube size: 7.5 ET tube uncuffed: No Tube secured depth (cm): 24 Tube secured location: teeth Tube placement confirmation: visualized tube passing through cords, equal breath sounds bilaterally, no breath sounds over epigastrium and confirmation by capnometry Patient tolerated procedure: well EBL(ml): 0 Additional comments: Done during break of CPR. Unable to pass tube below epiglottis with DL, VL used with grade i view at time of intubtaion. CPR was not delayed by attempts at intubation. Second attempt successful.
[2024-04-12 19:13] LABS: Alanine Aminotransferase 25 U/L (10-49); Albumin/Globulin Ratio 0.9 (1.2-2.2); Alkaline Phosphatase 724 U/L (46-116); Anion Gap 19 (7-16); Aspartate Amino Transferase 118 U/L (0-34); BUN/Creatinine Ratio 23 Ratio (12-20); Bilirubin,Total 1.9 mg/dL (0.3-1.2); Blood Urea Nitrogen 21 mg/dL (9-23); Calcium 8.6 mg/dL (8.3-10.6); Calcium (Corrected) 10.2 mg/dL (8.5-10.1); Carbon Dioxide 20.9 mMol/L (20.0-31.0); Chloride 95 mMol/L (98-107); Creatinine (Component) 0.9 mg/dL (0.6-1.3); Globulin 2.3 gm/dL (2.3-3.5); Glucose 279 mg/dL (74-106); Magnesium 2.4 mg/dL (1.6-2.6); Osmolality,Calculated 283 (275-295); Phosphorous 6.7 mg/dL (2.4-5.1); Potassium 3.7 mMol/L (3.4-5.1); Sodium 135 mMol/L (136-145); Total Protein 4.3 gm/dL (5.7-8.2); Troponin I 0.041 ng/mL (0.0-0.045); eGFR > 60 See Note
[2024-04-12] MEDS: TRANEXAMIC ACID INJ 1,000 MG/10 ML VIAL 1000 MG IV (19:34)
[2024-04-12 19:55] LABS: Partial Thromboplastin Time 76.6 Seconds (22.0-36.0)
--- NOTE | 2024-04-12 20:00 | PC.NURSE ---
Multiple code blue paged overhead, see code blue sheet.
--- NOTE | 2024-04-12 20:22 | PC.NURSE ---
Addendum entered by Niki Guerrero RN 04/12/24 20:25: on admit, myrna mata called, providers including Dr. Alonzo at bedside providing care for patient, report handed off to DAV Brito Original Note: at 1824 report received from Elena, patient intubated and sedated room 255
[2024-04-12] MEDS: MIDAZOLAM INJ 1 MG/ML VIAL 2 ML 4 MG IV (20:23)
--- NOTE | 2024-04-12 20:37 | PC.NURSE ---
See code blue sheet for medications given and MD event notes for intervention duering and after code blue. MD chan at [facility] during code to order multiple bolus and medications including tenectaplase after 1900.
--- NOTE | 2024-04-12 20:51 | PD.EVENT ---
Documentation for date of: 04/12/24 Event Note Event Note: Code blue activated overhead. Patient found in PEA arrest. ACLS ongoing upon my arrival. Medications given and intubation completed at bedside using Glidescope. Bedside lines placed during code as well- both arterial and venous cannulation done with kit in cart. Patient started on vasopressor support and transfered to the ICU for ongoing management. Patient moved to the ICU for ongoing management. Ultrasound used to confirm no PTX bilaterally. RV function significantly reduced with dilation and R>L. Imaging sent to cardiology form bedside Echo for additional input. Agreed with potential for PE, EKG also showed RV strain pattern with S1Q3T3 pattern and patient subsequently underwent placement of introducer sheath. Blood products administered per labs given drop in hemoglobin though no evidence of bleeding on FAST exam or grossly. Patient's and mother at bedside. In detail I explained role of thrombolytic therapy including associated risks with significant morbidity given possible bleeding from rib fractures, pulmonary contusion, or other potential sources that cannot be seen. Patient's was understanding and agreed to administration of TNK after ROSC was achieved. Aware that I cannot send patient to confirm diagnosis at this time but based on clinical scanarion and Echo findings.x Patient's family updated by multidisciplinary team and I did give multiple scenarios in keeping with the severity of illness and high risk for further morbidity including renal failure, limb loss, and devastating irreversible bleeding. Family appreciative of all care. Ongoing stabilization done in ICU as per Dr. Licona's documentation. He had been in contact with me throughout this time including notification when patient did ultimately after declined further resuscitation efforts. Total Critical Care Time: 100 minutes for delivery of ACLS, adjustments frequently for vasopressor support, directing mari of care including bedside staff and resident service, and counseling patient's and family. This is exclusive of time spent teaching housestaff or performing any separate billable procedures. Patient continued to require critical care services du eto imminent from recurrent cardiac arrest suspected 2/2 large pulmonary embolism.
[2024-04-12] MEDS: Sodium Bicarb 8.4% 50ml Vial* 88.23 MEQ in DEXTROSE 5%-WATER 500 ML 100 MEQ IV (20:58)
[2024-04-12] MEDS: EPINEPHrine Inj 16 MG in SODIUM CHLORIDE 0.9% 250 ML 234 ML 48.255 MG IV ×2 (21:02→21:14)
[2024-04-12 21:44] LABS: Reflex Lactate? Y
--- NOTE | 2024-04-12 21:51 | EVENTNT_ITS ---
Documentation for date of: 04/12/24 Event Note Event Note: NAVAL ARCHITECT SPECIALIST called at 17:32 for hypoxia with patient's O2 saturation in the 30's. Upon arrival to the patient's room he was unresponsive. On initial pulse check, the patient had a pulse. The patient soon thereafter lost his pulse a a CODE BLUE was initiated. Chest compressions in addition to ACLS measures were immediately initiated. Initial rythym showed asystole which then turned into PEA. Multiple rounds of epinephrine were given. Patient's pulse returned and he was subsequently intubated. Patient's pulse was lost again and regained multiple times after which he was upgraded to the ICU. Bedside echo showed a dilated RV with concern for massive Pulmonary embolism. EKG also consistent with Patient was administerd TNK. Patient's family was informed of his clinical status. Patient's case was discussed with supervising attending physician Dr. Shantal Wallace M.D. Internal Medicine PGY-3
[2024-04-12 22:02] LABS: Base Excess, Venous -21 (-3-3); O2 Saturation, Venous 76 % (96-97); PCO2, Venous 52 mmHg (36-56); PO2, Venous 60 mmHg (15-58); pH, Venous 6.92 (7.33-7.66)
[2024-04-12 22:05] LABS: Basophils # (Auto) 0.3 Thou/mm3 (0.0-0.2); Basophils % (Auto) 0 % (0-2.5); Eosinophils # (Auto) 0.1 Thou/mm3 (0.0-0.5); Eosinophils % (Auto) 0 % (0-10); Hematocrit 31.8 % (41.0-53.0); Hemoglobin 9.9 g/dL (13.5-16.0); Immature Granulocytes % (Auto) 13 % (0-0); Immature Granulocytes Auto 9.96 Thou/mm3 (0.00-0.00); Lymphocytes # (Auto) 9.7 Thou/mm3 (1.0-4.8); Lymphocytes % (Auto) 13 % (10-50); Mean Corpuscular HGB Conc 31.1 g/dl (31.0-37.0); Mean Corpuscular Hemoglobin 27.8 pg (25.0-35.0); Mean Corpuscular Volume 89 fL (80-100); Monocytes # (Auto) 4.7 Thou/mm3 (0.0-0.8); Monocytes % (Auto) 6 % (0-12); Neutrophils # (Auto) 50.6 Thou/mm3 (1.8-7.7); Neutrophils % (Auto) 67 % (37-80); Nucleated Red Blood Cell % 1 /100 WBC (0); Platelet Count 182 Thou/mm3 (140-440); Red Blood Count 3.56 Miln/mm3 (4.50-5.90)
[2024-04-12 22:07] LABS: White Blood Count 75.4 Thou/mm3 (3.8-10.6)
--- NOTE | 2024-04-12 22:30 | PC.NURSE ---
Multiple code blue paged overhead, see code blue sheet. Family in the unit, at 2218, MD Licona speaking to Stacie Lutz, she stated to stop compression. Patient pronounced at 2225. Mortuary of choice picked up body remains at 0143
[2024-04-12 22:33] LABS: Alanine Aminotransferase 37 U/L (10-49); Albumin/Globulin Ratio 0.8 (1.2-2.2); Alkaline Phosphatase 949 U/L (46-116); Anion Gap 25 (7-16); Aspartate Amino Transferase 235 U/L (0-34); BUN/Creatinine Ratio 22 Ratio (12-20); Bilirubin,Total 3.4 mg/dL (0.3-1.2); Blood Urea Nitrogen 22 mg/dL (9-23); Calcium 8.8 mg/dL (8.3-10.6); Calcium (Corrected) 10.4 mg/dL (8.5-10.1); Chloride 101 mMol/L (98-107); Globulin 2.5 gm/dL (2.3-3.5); Glucose 120 mg/dL (74-106); Osmolality,Calculated 283 (275-295); Sodium 140 mMol/L (136-145); Total Protein 4.5 gm/dL (5.7-8.2); eGFR > 60 See Note
--- NOTE | 2024-04-12 23:00 | PD.DPN ---
Documentation for date of: 04/12/24 Pronouncement Note Date and Time of Date of : 04/12/24 Time of : 10:25 PCOD Preliminary cause of : Cardiac arrest Contributing Factors (1) Sepsis: (2) Pneumonia: Summary Additional details: At 2211 a code blue was called due to pulseless bradycardia. Patient already has 7 codes code blues previously. We called at bedside, she witness our efforts to regain a pulse. At the last pulse check we were unable to get a pulse. At 2217 at bedside decided to stop efforts of resuscitation. Time of was pronounced 2224. Condolences were given to family at bedside. Additional Data Confirmation of : no pulse, no respirations, no heart sounds, pupils fixed and dilated and other (POCUS at bedside showed no cardiac activity.) Family: at bedside Attending/PCP notified?: Yes Attending physician: Maulik Buck MD Was code activated?: Yes Autopsy requested?: No cigarette package examiner notified?: No Organ bank notified?: Yes Advance directives: No
[2024-04-12 23:11] LABS: Carbon Dioxide 13.7 mMol/L (20.0-31.0)
--- NOTE | 2024-04-13 00:25 | DES_ITS ---
Documentation for date of: 04/13/24 Summary Date and Time Date of admission: 04/11/24 20:22 Additional Data Attending physician: Maulik Buck MD Visit Providers Provider Primary care physician: Easton Hwang PA-C Consults: 04/11/24 11:59 Referral Registered Dietitian Routine Comment: Diagnosis Contributing Factors (1) Sepsis: (2) Pneumonia: Discharge Plan Prescriptions/Referrals Prescriptions/Med Rec: No Action insulin glargine [Lantus U-100 Insulin] 100 unit/mL solution 40 unit SUBCUT BID Patient Comments: INJECT 40 UNITS BY SUBCUTANEOUS ROUTE ONCE PER INSULIN PROTOCOL (DME) FreeStyle Caitlin 3 Sensor Device See Rx Instructions .Route Qty: 1 4RF Rx Instructions: As directed (DME) FreeStyle Caitlin 3 Gateway Misc See Rx Instructions .Route Qty: 1 0RF Rx Instructions: As directed (DME) FreeStyle Caitlin 2 Gateway Misc See Rx Instructions .Route Qty: 1 0RF Rx Instructions: As directed (DME) FreeStyle Caitlin 2 Sensor Kit See Rx Instructions .Route Qty: 2 1RF Rx Instructions: As directed Glucerna Therapeutic Nutrition Liquid See Rx Instructions .ROUTE .COMPLEX Rx Instructions: 1 bottle by oral route 3 times daily Januvia 100 mg Tablet 1 mg PO QDAY Jardiance 10 mg Tablet 10 mg PO QAM Referrals: Easton Hwang PA-C [Primary Care Provider] - Patient/Caregiver Discharge Instructions Print Language: Kiswahili
[2024-04-13 01:00] LABS: Reflex Lactate? Y
== END 2024-04-12 22:25 | disposition expired | DRG 720 ==
LOC: SERX 18:51 → SERHOLD 20:36 → S3NX 22:01 → S2SX 04-12 18:11
PROVIDERS: Emergency Medicine; Student in an Organized Health Care Education/Training Program; Admitting Provider Student in an Organized Health Care Education/Training Program; Emergency Provider Emergency Medicine; PCP Physician Assistant; Visit Provider Student in an Organized Health Care Education/Training Program
DX: A41.9 Sepsis, unspecified organism (principal); J96.01 Acute respiratory failure with hypoxia; S93.402A Sprain of unspecified ligament of left ankle, initial encounter; N39.0 Urinary tract infection, site not specified; E87.1 Hypo-osmolality and hyponatremia; J15.0 Pneumonia due to Klebsiella pneumoniae; R65.20 Severe sepsis without septic shock; I48.92 Unspecified atrial flutter; E87.8 Other disorders of electrolyte and fluid balance, not elsewhere classified; I11.9 Hypertensive heart disease without heart failure; E11.65 Type 2 diabetes mellitus with hyperglycemia; I46.2 Cardiac arrest due to underlying cardiac condition; I26.99 Other pulmonary embolism without acute cor pulmonale; R00.1 Bradycardia, unspecified; R71.0 Precipitous drop in hematocrit; Z87.440 Personal history of urinary (tract) infections; Z87.01 Personal history of pneumonia (recurrent); Z91.148 Patient's other noncompliance with medication regimen for other reason; Z79.4 Long term (current) use of insulin; Z79.84 Long term (current) use of oral hypoglycemic drugs; W22.8XXA Striking against or struck by other objects, initial encounter
CPT/HCPCS: 36415; 36600; 71045; 73610; 80048; 80053; 80307; 81001; 82010; 82803; 83036; 83605; 83615; 83690; 83735; 83880; 84100; 84145; 84443; 84484; 85025; 85610; 85730; 86403; 86850; 86900; 86901; 86920; 86927; 86965; 87040; 87077; 87081; 87086; 87186; 87205; 87449; 87502; 87634; 87811; 89220; 92950; 93005; 93225; 94002; 94664; 96372; 99291; J0171; J0456; J0696; J1643; J1815; J2250; J2543; J2598; J3101; J3370; J3475; J3490; J7030; J7050; J7060; P9016; 94640; A9270; J1644